=== PATIENT | male | born 1975 | race Two or more races ===

== ENCOUNTER 2025-05-13 16:58 | Observation (INO) | payer MEDICAID, SELFPAY ==
[2025-05-13] VITALS (9 sets, daily range): BP systolic 159–175; BP diastolic 87–118; PULSE 69–81; RESP 18–20; TEMP 37.2; O2SAT 94–98; BMI 34.2
--- NOTE | 2025-05-13 17:22 | EKG_ITS ---
[facility] Test Date: 2025-05-13 Pat Name: KENNY GRANADOS Department: Room: - Gender: Male Coremaker Machine: : 1975 Requested By: Talha Venegas (DEVENDRA) Order Number: [id number] Reading MD: Talha Venegas (EVS MANAGER) Measurements Intervals Melvin Rate: 85 P: 33 NV: 172 QRS: -67 QRSD: 96 T: 27 QT: 373 QTc: 444 Interpretive Statements SINUS RHYTHM INCOMPLETE RIGHT BUNDLE BRANCH BLOCK [90+ ms QRS DURATION, TERMINAL R IN V1/V2, 40+ ms S IN I/aVL/V4/V5/V6] LEFT ANTERIOR FASCICULAR BLOCK [QRS AXIS <= -45, QR IN I, RS IN II] No previous ECG available for comparison /[id number]/S0/[id number].pdf
--- NOTE | 2025-05-13 17:22 | XR_ITS ---
Examination: Abdomen sonogram, Limited Date and time of exam: May 13, 2025 1746 hours INDICATIONS: Right upper abdominal pain and vomiting beginning today Technique: Real-time jimenez scale transabdominal sonographic images of the upper abdomen obtained. Findings: Cholelithiasis Gallbladder wall 0.5 cm with edema Common bile duct 0.5 cm Pancreatic and 2.7 cm Liver 18.9 cm fatty infiltration 10 mm right lobe liver cyst Normal hepatopedal portal venous and Patent IVC IMPRESSION: Acute calculus cholecystitis
--- NOTE | 2025-05-13 17:31 | EDNOTE_ITS ---
ED Abdominal Pain RME/HPI General Chief Complaint: Abdominal Pain Stated complaint: UPPER ABD PAIN WITH VOMITING SINCE LAST NIGHT Time seen by provider: 05/13/25 17:22 Arrival date/time: 05/13/25 16:58 RME / HPI RME / HPI narrative: 49-year-old male patient came in for evaluation regarding right upper quadrant pain. Onset of symptoms since last night as sudden onset of upper abdominal pain, described as sharp pain, associated with multiple episodes of vomiting. Patient told me that he cannot take anything down due to vomiting. Patient denies any fever denies any diarrhea denies any other complaints no medications taken prior to arrival. Related Data Previous Rx's ?Medication ?Instructions ?Recorded hydrocodone 5 mg-acetaminophen 325 1 tab PO Q6H PRN pa in #20 tabs 01/10/18 mg tablet ([place]) Allergies Allergy/AdvReac Type Severity Reaction Status Date / Time No Known Allergies Allergy Verified 05/13/25 17:00 Review of Systems Review of Systems Narrative Review of Systems: Review of system reviewed and within normal limits except mentioned in HPI ED Exam Narrative Physical exam: VITAL SIGNS: Reviewed. GENERAL APPEARANCE: Alert and interactive, follows commands, no acute distress, HEAD AND FACE: Non-traumatic. ENT: PERRL, pink conjunctivitis, eyelid no trauma, Mucous membrane moist. NECK: Supple, nontender, no nuchal rigidity. CHEST: No tenderness, no crepitus, no paradoxical movement, no retractions. LUNGS: Clear, well ventilated, symmetric, no rales, no wheezing, no ronchi, no stridor, good breath sounds bilaterally. HEART: Regular rate, regular rhythm, no murmur, no gallops. ABDOMEN: Soft, positive bowel sounds, nondistended, no guarding, epigastric tenderness, no rebound, no masses, RECTAL: Deferred. GENITAL: Deferred. NEUROLOGICAL: Gross motor function intact sensory function intact, Appropriate for age. MUSCULOSKELETAL: low back nontender, full range of motion. EXTREMITIES: Nontender, full range of motion. SKIN: Color pink, dry, no rash, no lacerations, no abrasions, no contusions. LYMPHATICS: Deferred. Course Quality Measures none Orders Category Date Time Status Patient Condition Routine Admission 05/13/25 21:[address] in Observation Status Routine Admission 05/13/25 21:32 Active Activity as Tolerated Routine Care 05/13/25 21:32 Ordered EKG (ED ONLY) *Do not use* NOW Care 05/13/25 17:24 Completed NPO after Midnight ONCE Care 05/13/25 21:33 Active Obtain Written Consent For: NOW Care 05/13/25 21:32 Active Vital Signs, Non-Routine Q4H Care 05/13/25 21:45 Ordered Consult to General Surgery Stat Cons 05/13/25 20:50 Ordered Diet NPO after Midnight Diet 05/14/25 00:01 Active EKG (ED Only) Stat Exams 05/13/25 17:22 Draft US gall bladder Stat Exams 05/13/25 17:22 Completed CBC AM DRAW Lab 05/14/25 05:00 Ordered CBC Stat Lab 05/13/25 17:36 Completed Comprehensive Metabolic Panel Stat Lab 05/13/25 17:36 Completed Lipase Stat Lab 05/13/25 17:36 Completed Liver Panel Routine Lab 05/13/25 21:34 Ordered Troponin I Stat Lab 05/13/25 17:36 Completed UA, C/S IF [Urinalysis, C/S if Indicated] Stat Lab 05/13/25 18:16 Completed Ketorolac Inj [Toradol Inj] Med 05/13/25 17:30 Discontinued 30 mg IM X1 ONE Ketorolac Inj [Toradol Inj] Med 05/13/25 21:32 Ordered 30 mg IVP Q6HR PRN Ketorolac Inj [Toradol Inj] Med 05/13/25 17:33 Discontinued 30 mg IVP X1 ONE Ondansetron Inj [Zofran Inj] Med 05/13/25 17:33 Discontinued 4 mg IVP X1 ONE Ondansetron Odt [Zofran Odt] Med 05/13/25 17:30 Discontinued 4 mg PO X1 ONE Piper/Tazo 3.375 gm Premix [Zosyn] Med 05/13/25 20:47 Discontinued 3.375 gm in 50 ml IV X1 Ringers Lactated 1000 ml [Lactated Ringers] 1,000 ml Med 05/13/25 17:33 Discontinued IV 999 mls/hr Sodium Chloride 0.9% 1000 ml [Ns] 1,000 ml Med 05/13/25 21:45 Ordered IV 100 mls/hr mg Hyd/Al Hyd/Jeri Susp [Maalox Susp] Med 05/13/25 17:30 Discontinued 30 ml PO X1 ONE Code Status Routine Oth 05/13/25 21:32 Ordered Vital Signs Vital signs: Vital Signs Temperature 99 F 05/13/25 17:10 Pulse Rate 81 05/13/25 17:10 Respiratory Rate 20 05/13/25 17:10 Blood Pressure 166/93 H 05/13/25 17:10 Pulse Oximetry (%) 95 05/13/25 17:10 Oxygen Delivery Method Room Air 05/13/25 17:10 Abdominal Pain MDM [facility] Narrative [facility] Narrative:: 49-year-old male patient came in for evaluation regarding right upper quadrant pain. Onset of symptoms since last night as sudden onset of upper abdominal pain, described as sharp pain, associated with multiple episodes of vomiting. Patient told me that he cannot take anything down due to vomiting. Patient denies any fever denies any diarrhea denies any other complaints no medications taken prior to arrival. Laboratory workup is significant for slight leukocytosis, and slight elevated open total bili 1.5 slightly elevated at liver enzymes also. Ultrasound of the gallbladder showed acute calculus cholecystitis. Case discussed with Dr. Clifford general surgeon on-call, who examined the patient in the emergency room and admitted the patient. Patient data External records reviewed:: None Clinical information provided by:: patient and family Social determinants that could affect healthcare access:: none Patient has the following chronic illnesses:: None How is presenting disease/condition affected by chronic disease/condition?: no chronic disease Evaluation data The following diagnostics were reviewed and interpreted by me:: lab results and radiology exam(s) Lab and/or radiology exams considered but not ordered:: None Interpretation Summary: See results [facility] Medications / Prescriptions Medications or Prescriptions considered but not ordered:: None Medication administrations:: Medication Administration History Discontinued Medications Al Hydrox/Mg Hydrox/Simethicone (Mg Hyd/Al Hyd/Jeri (Maalox Reg) Susp 30 Ml Udc) 30 ml PO X1 ONE Stop: 05/13/25 17:31 Last Admin: 05/13/25 18:38 Dose: 30 ml Documented By: NOEMÍ Lactated Ringer's (Lactated Ringers) 1,000 mls @ 999 mls/hr IV .Q1H1M ONE Stop: 05/13/25 18:33 Last Infusion: 05/13/25 19:59 Dose: Infused Documented By: Admin: 05/13/25 18:35 Dose: 999 mls/hr Documented By: NOEMÍ Piperacillin/Tazobactam/Dextrose (Zosyn) 3.375 gm in 50 mls @ 100 mls/hr IV X1 ONE Stop: 05/13/25 21:16 Ketorolac Tromethamine (Ketorolac Inj 60 Mg/2 Ml Vial) 30 mg IM X1 ONE Stop: 05/13/25 17:31 Last Admin: 05/13/25 18:44 Dose: Not Given Documented By: NOEMÍ Non-Admin Reason: Duplicate Medication on eMAR Ketorolac Tromethamine (Ketorolac Inj 30 Mg/Ml Vial) 30 mg IVP X1 ONE Stop: 05/13/25 17:34 Last Admin: 05/13/25 18:38 Dose: 30 mg Documented By: NOEMÍ Ondansetron HCl (Ondansetron Odt 4 Mg Tabrap) 4 mg PO X1 ONE; Protocol Stop: 05/13/25 17:31 Last Admin: 05/13/25 18:44 Dose: Not Given Documented By: NOEMÍ Non-Admin Reason: Duplicate Medication on eMAR Ondansetron HCl (Ondansetron Inj 2 Mg/Ml Inj 2 Ml) 4 mg IVP X1 ONE; Protocol Stop: 05/13/25 17:34 Last Admin: 05/13/25 18:39 Dose: 4 mg Documented By: NOEMÍ Zofran, Toradol IV Zosyn and IV fluids for hydration Consultations Consultation(s) initiated? (list below): No Diagnosis Differential diagnosis abdominal pain: abdominal pain and diverticulitis Most likely diagnosis given after review of the tests above:: Acute calculus cholecystitis Admission Indicated Admission indicated?: not indicated Admission Request Was there a request for admission?: No Disposition Plan Disposition Plan: Admit Discharge Plan Plan Patient Disposition: Admit Acute Care w/in Hospital Discharge Disposition comment: Stable Prescriptions/Referrals Prescriptions/Med Rec: No Action hydrocodone-acetaminophen [[place]] 5-325 mg tablet 1 tab PO Q6H MDD 1 PRN (Reason: pain) Qty: 20 0RF Referrals: Eda Murphy [Primary Care Provider] - In 1 week Problem List Clinical Impression: Acute calculous cholecystitis Patient/Caregiver Discharge Instructions Print Language: Croatian Stand Alone Forms: [employer] Award Info., Patient Portal Info Letter
[2025-05-13 17:51] LABS: Basophils % (Auto) 0 % (0-2.5); Eosinophils % (Auto) 0 % (0-10); Hematocrit 44.3 % (41.0-53.0); Immature Granulocytes % (Auto) 0 % (0-0); Immature Granulocytes Auto 0.03 Thou/mm3 (0.00-0.00); Lymphocytes % (Auto) 8 % (10-50); Mean Corpuscular HGB Conc 36.1 g/dl (31.0-37.0); Mean Corpuscular Hemoglobin 31.1 pg (25.0-35.0); Mean Corpuscular Volume 86 fL (80-100); Monocytes # (Auto) 0.9 Thou/mm3 (0.0-0.8); Monocytes % (Auto) 7 % (0-12); Neutrophils # (Auto) 10.9 Thou/mm3 (1.8-7.7); Neutrophils % (Auto) 85 % (37-80); Nucleated Red Blood Cell % 0 /100 WBC (0); Platelet Count 290 Thou/mm3 (140-440); RDW Standard Deviation 39.7 fL (35.1-43.9); Red Blood Count 5.15 Miln/mm3 (4.50-5.90); White Blood Count 12.9 Thou/mm3 (3.8-10.6)
[2025-05-13 18:15] LABS: Alanine Aminotransferase 131 U/L (10-49); Albumin, Serum 4.9 gm/dL (3.5-5.0); Albumin/Globulin Ratio 1.8 (1.2-2.2); Alkaline Phosphatase 64 U/L (46-116); Anion Gap 8 (7-16); Aspartate Amino Transferase 54 U/L (0-34); BUN/Creatinine Ratio 9 Ratio (12-20); Bilirubin,Total 1.5 mg/dL (0.3-1.2); Blood Urea Nitrogen 12 mg/dL (9-23); Calcium 9.9 mg/dL (8.3-10.6); Calcium (Corrected) 9.9 mg/dL (8.5-10.1); Chloride 100 mMol/L (98-107); Creatinine (Component) 1.3 mg/dL (0.6-1.3); Estimated Creatinine Clearance 90.4 mL/min (>60); Globulin 2.8 gm/dL (2.3-3.5); Glucose 124 mg/dL (74-106); Lipase 37 U/L (12-53); Osmolality,Calculated 276 (275-295); Potassium 4.7 mMol/L (3.4-5.1); Sodium 138 mMol/L (136-145); Total Protein 7.7 gm/dL (5.7-8.2); Troponin I < 0.020 ng/mL (0.0-0.045); eGFR > 60 See Note
[2025-05-13 18:22] LABS: Collection Type, Urine Clean Catch
[2025-05-13 18:31] LABS: Amorphous Crystals,Urine Present (Absent); Bacteria,Urine Rare; Bilirubin,Urine Negative (Negative); Blood,Urine Trace (Negative); Clarity,Urine Turbid (Clear/Hazy); Color,Urine Yellow (Lt Yel-Yel); Culture Indicated,Urine Not Indicated; Glucose, Urine Negative (Negative); Ketones,Urine Negative (Negative); Leukocyte Esterase,Urine Negative (Negative); Nitrite,Urine Negative (Negative); Protein,Urine 1+ (Neg - Trace); RBC,Urine 5 /hpf (0-3); Specific Gravity,Urine 1.035 (1.001-1.035); Squamous Epithelial Cell,Urine < 1 /hpf (0-5); Urobilinogen,Urine Negative mg/dL (0.0-1.0); WBC,Urine < 1 /hpf (0-5)
[2025-05-13] MEDS: RINGERS LACTATED 1000 ML 1,000 ML 999 ML IV (18:35)
[2025-05-13] MEDS: MG HYD/AL HYD/SIME (Maalox Reg) SUSP 30 ML UDC PO (18:38)
[2025-05-13] MEDS: KETOROLAC INJ 30 MG/ML VIAL IVP ×2 (18:38→22:44)
[2025-05-13] MEDS: ONDANSETRON INJ 2 MG/ML INJ 2 ML 4 MG IVP (18:39)
--- NOTE | 2025-05-13 21:37 | PD.SURHP ---
[facility] Date of Admission 05/13/2025 Chief Complaint Chief Complaint: Patient is admitted with the complaints of acute cholecystitis with cholelithiasis HPI History of present illness revealed that the patient was in his usual health until around 10 PM last night when he developed a severe pain in the epigastric region going down on both sides. The pain gradually increased and at 4 PM he was experiencing 10 out of 10. He also had a vomiting 4 times. He has never experienced such pain in the past. He tried to eat some coffee with the breakfast but he threw up. Patient denies any other major medical illness. His past surgery consisted of some disc in L4-L5 and repair of Achilles tendon due to a sports injury. Patient denies any allergies Past Medical History Surgical History SURGICAL: Positive Joint Replacement (achiles rupture surgery) Social History SMOKING STATUS: Never smoker Meds Home Medications and Allergies Allergies Allergy/AdvReac Type Severity Reaction Status Date / Time No Known Allergies Allergy Verified 05/13/25 17:00 Exam Vital Signs Temp Pulse Resp BP Pulse Ox O2 Del Method 99 F 81 20 166/93 H 95 Room Air 05/13/25 17:10 05/13/25 17:10 05/13/25 17:10 05/13/25 17:10 05/13/25 17:10 05/13/25 17:10 Narrative Exam Physical examination revealed a slightly obese male who is 6 foot 1 inch tall weighing 260 pounds with BMI of 34.3. His vital signs are normal other than slightly elevated blood pressure which is 166/90 Constitutional Constitutional: mild distress Routine Cardiovascular Exam Comments: Sinus rhythm Routine Abdominal Exam Comments: Abdominal examination showed a definite tenderness in the right upper quadrant with a positive Lemus sign Routine Rectal Exam Comments: Deferred Routine Exam Comments: Deferred Routine Extremities Exam Comments: Within normal limits Routine Back/Spine/Pelvis Exam Comments: Surgical scar in the back due to previous surgery Results Results: Laboratory Laboratory Narrative: Patient's laboratory workup showed mild leukocytosis with a WBC about 12,000. Liver enzymes are borderline elevated Results: Imaging Imaging narrative: Ultrasound of the gallbladder showed thickening of the gallbladder wall with stones edema surrounding the gallbladder suggesting acute calculus cholecystitis Assessment & Plan Additional Assessment Additional comments: Impression: Acute calculus cholecystitis Plan Plan: I advised patient to undergo laparoscopic cholecystectomy. The procedure was explained to him in detail including the risk of the procedure and potential complications. Patient also was told about the need for open cholecystectomy in case the laparoscopic approach fails. We will start him on Zosyn and arrange for surgery in the morning Quality Measures Quality Measures none
[2025-05-13] MEDS: SODIUM CHLORIDE 0.9% 1000 ML 1,000 ML 100 ML IV (21:58)
[2025-05-13] MEDS: PIPER/TAZO 3.375 GM PREMIX 3.375 GM/50 ML BAG IV (22:00)
[2025-05-14] VITALS (16 sets, daily range): BP systolic 105–161; BP diastolic 57–107; PULSE 77–100; RESP 13–95; TEMP 36.1–39.1; O2SAT 91–97; BMI 32.8
[2025-05-14] MEDS: MORPHINE SULF INJ 10 MG/ML VIAL 5 MG IVP ×3 (00:05→21:33)
--- NOTE | 2025-05-14 00:40 | PC.NURSE ---
AUDELIA SORIANO DECLINED DUE TO CAPACITY
--- NOTE | 2025-05-14 00:44 | PC.NURSE ---
REPORT GIVEN TO ZENA LEBRON RN
[2025-05-14 06:12] LABS: Alanine Aminotransferase 127 U/L (10-49); Albumin, Serum 4.4 gm/dL (3.5-5.0); Alkaline Phosphatase 64 U/L (46-116); Aspartate Amino Transferase 75 U/L (0-34); Bilirubin,Direct 0.5 mg/dL (0.0-0.3); Bilirubin,Total 1.8 mg/dL (0.3-1.2); Total Protein 6.9 gm/dL (5.7-8.2)
[2025-05-14 06:13] LABS: Basophils % (Auto) 0 % (0-2.5); Eosinophils # (Auto) 0.1 Thou/mm3 (0.0-0.5); Eosinophils % (Auto) 1 % (0-10); Hematocrit 40.3 % (41.0-53.0); Hemoglobin 14.2 g/dL (13.5-16.0); Immature Granulocytes % (Auto) 0 % (0-0); Immature Granulocytes Auto 0.02 Thou/mm3 (0.00-0.00); Lymphocytes # (Auto) 1.1 Thou/mm3 (1.0-4.8); Lymphocytes % (Auto) 12 % (10-50); Mean Corpuscular HGB Conc 35.2 g/dl (31.0-37.0); Mean Corpuscular Hemoglobin 30.7 pg (25.0-35.0); Mean Corpuscular Volume 87 fL (80-100); Monocytes % (Auto) 10 % (0-12); Neutrophils # (Auto) 7.6 Thou/mm3 (1.8-7.7); Neutrophils % (Auto) 77 % (37-80); Nucleated Red Blood Cell % 0 /100 WBC (0); Platelet Count 248 Thou/mm3 (140-440); Red Blood Count 4.62 Miln/mm3 (4.50-5.90); White Blood Count 9.9 Thou/mm3 (3.8-10.6)
--- NOTE | 2025-05-14 09:14 | SUR.PHASEI ---
0914 Patient arrived to recovery resting comfortably in [facility], on oxygen 10L via oxy mask with an oral/nasal airway in place, breathing unlabored, vital signs stable, dressing intact to abdomen; x3 dissolvable sutures, gauze, medipore tape, and x1 dissolvable sutures, gauze, tegaderm, no bleeding noted, report received from Dr. Mendez and Geronimo ANDERSON
--- NOTE | 2025-05-14 09:35 | PD.SUROPNT ---
Date of Procedure 05/14/25 Pre Op Diagnosis Acute cholecystitis with cholelithiasis Post Op Diagnosis Same with the large stone stuck at the neck of the gallbladder Procedure Laparoscopic cholecystectomy Findings Patient is found to have very inflamed and distended gallbladder with a stone stuck at the neck causing complete obstruction and inflammation Procedure Description After endotracheal anesthesia was given the patient was placed in supine position and the abdomen was prepped with chloroprep solution and draped in a sterile manner. After time out was performed I injected a few cc of of half percent Marcaine with epinephrine below the umbilicus and I made an incision for about 3 cm in length. The fascia was cleaned and Veress needle was inserted to create a pneumoperitoneum up to 15 mmHg. Then introduced a 12 mm trocar and a 10 mm camera through the fascia and I inspected the intra-abdominal organs as well as the gallbladder and the liver. Another 5 mm trocar was inserted in the epigastric region under direct vision after injecting some local anesthesia. At this time the patient was kept in reverse Trendelenburg position with the left lateral tilt. The gallbladder was found to be tense due to bile and could not be grasped. Therefore I decompressed it about at least 50 cc of foul-smelling bile which was then cultured. The third 5 mm trocar was inserted over the mid axillary line under direct vision and a Alejandro and Joseph grasper was used to hold the fundus of the gallbladder. The retraction was carried out by the after school program assistant moving the fundus of the gallbladder towards the right shoulder of the patient to create enough traction. I placed a another 5 mm trocar in the midaxillary line just lateral to the rectus muscle under direct vision. I used a fenestrated grasper to retract the neck of the gallbladder laterally towards the patient's right hip. The Calot's triangle was exposed and I achieved the critical view of safety as follows: I dissected out the fatty tissue from the hepatocystic triangle and cleared this area. I also dissected inferior and posterior to the gallbladder to identify the cystic duct and the gallbladder wall. Then superiorly I dissected along the cystic plate up to lower one third third of the gallbladder to lift the gallbladder from the liver. At this time I confirmed that only 2 structures entering the gallbladder were cystic artery and the cystic duct. The common duct was seen distally but no dissection was carried out around the duct. I did not see any need for operative cholangiogram in this patient. The patient had mild elevation of the transaminases which I attributed to the ongoing inflammation. The cystic duct was clipped doubly and then divided and cystic artery was similarly dealt with. Then the gallbladder was removed from the liver bed using Harmonic neo to control the small blood vessels as the dissection proceeded. Then the gallbladder was from the liver bed completely and delivered through the umbilical port using an Endopouch. The liver bed was coagulated with cautery to obtain satisfactory hemostasis. The trocars were pulled out from the abdominal cavity and the fascia at the umbilical incision was closed with interrupted 0 Ethibond. Subcutaneous tissues was closed with 3-0 chromic and injected a few cc of half percent Marcaine with epinephrine and the skin was closed with interrupted 4-0 nylon stitches at all the trocar sites. Dressing was applied with 2 x 2 and Tegaderm. Patient tolerated the procedure well and returned to recovery room in stable condition. Anesthesia GETA Pathology / specimen Other (Gallbladder and the stones) IVF Infused 1,000 Estimated Blood Loss 50 Surgeon Gilda Urias MD Surgical Staff Operation Date: 05/14/25 06:30 Case Staff Anesthesiologist: Jefferson Mendez RNindustrial commercial groundskeeper: Zeina Naqvi RNindustrial commercial groundskeeper: Pete Telles
--- NOTE | 2025-05-14 09:47 | SUR.PHASEI ---
0947 Spoke to patients via telephone, updated on patient status, all questions answered
--- NOTE | 2025-05-14 10:06 | SUR.PHASEI ---
1001 Report given to Karen ANDERSON, patient meets discharge criteria from recovery, awake and talking with staff eating ice chips; tolerating well, on oxygen 3L via nasal cannula, breathing unlabored, vital signs stable, dressing intact; no bleeding noted, denies pain and and nausea. 1006 Patient transported via gurney to room 358 without incident, patient able to ambulate from gurney to bed with stand-by assist, patient resting comfortably in bed with oxygen 5L via oxy mask due to patient requestiong to go to sleep and having sleep apnea, Karen ANDERSON aware patient oxygen in use and setting, patient has call light in reach
[2025-05-14] MEDS: SODIUM CHLORIDE 0.9% 1000 ML 1,000 ML 100 ML IV ×2 (10:37→21:23)
--- NOTE | 2025-05-14 11:50 | PC.SS ---
Lenin Mcgill is a 49-year-old male admitted to [facility] for Acute Tanesha. SS conducted bedside contact with the patient to complete initial assessment and to discuss discharge planning. Role and reason explained. Patient confirmed demographic information. Patient identifies his Karina Beasley [phone] as his surrogate decision maker. Pt states he is able to complete all ADL?s independent. Pt does not possesses any DME. Pts PCP is Eda Murphy. Pharmacy of choice is [facility] on [address]. Discharge options discussed and the pt wishes to return home.? Pt fam will provide transport at the time of DC. No further intervention required at this time, social media marketing analyst would be available to address any further concerns. DC Plan: Home Contact: Karina Beasley [phone] Address: Confirmed on face sheet PCP: Eda Murphy
--- NOTE | 2025-05-14 12:45 | PC.RT ---
Incentive spirometer instruction completed by nursing.
[2025-05-14] MEDS: PIPER/TAZO 3.375 GM PREMIX 3.375 GM/50 ML BAG IV ×2 (15:27→21:23)
[2025-05-14] MEDS: KETOROLAC INJ 30 MG/ML VIAL IVP (18:21)
--- NOTE | 2025-05-14 18:36 | PC.NURSE ---
Called Dr. Urias to notify him of pt. temperature, no answer x2, left a voicemail asking him to call back. Cooling measures initiated and IV Toradol given for pain.
[2025-05-15] VITALS: BP 110/70; PULSE 83; RESP 20; TEMP 36.6; O2SAT 96
[2025-05-15 04:00] VITALS: BP 142/83; PULSE 87; RESP 18; TEMP 36.6; O2SAT 95
[2025-05-15] MEDS: PIPER/TAZO 3.375 GM PREMIX 3.375 GM/50 ML BAG IV (05:17)
[2025-05-15 05:48] LABS: Basophils % (Auto) 0 % (0-2.5); Eosinophils % (Auto) 0 % (0-10); Hematocrit 37.5 % (41.0-53.0); Hemoglobin 13.2 g/dL (13.5-16.0); Immature Granulocytes % (Auto) 1 % (0-0); Immature Granulocytes Auto 0.06 Thou/mm3 (0.00-0.00); Lymphocytes # (Auto) 0.8 Thou/mm3 (1.0-4.8); Lymphocytes % (Auto) 6 % (10-50); Mean Corpuscular HGB Conc 35.2 g/dl (31.0-37.0); Mean Corpuscular Hemoglobin 31.1 pg (25.0-35.0); Mean Corpuscular Volume 88 fL (80-100); Monocytes # (Auto) 0.8 Thou/mm3 (0.0-0.8); Monocytes % (Auto) 7 % (0-12); Neutrophils # (Auto) 10.6 Thou/mm3 (1.8-7.7); Neutrophils % (Auto) 86 % (37-80); Nucleated Red Blood Cell % 0 /100 WBC (0); Platelet Count 200 Thou/mm3 (140-440); RDW Standard Deviation 41.1 fL (35.1-43.9); Red Blood Count 4.25 Miln/mm3 (4.50-5.90); White Blood Count 12.3 Thou/mm3 (3.8-10.6)
[2025-05-15 06:32] LABS: Alanine Aminotransferase 353 U/L (10-49); Albumin, Serum 4.1 gm/dL (3.5-5.0); Alkaline Phosphatase 66 U/L (46-116); Anion Gap 9 (7-16); Aspartate Amino Transferase 238 U/L (0-34); Bilirubin,Direct 0.6 mg/dL (0.0-0.3); Bilirubin,Total 1.6 mg/dL (0.3-1.2); Carbon Dioxide 27.9 mMol/L (20.0-31.0); Chloride 102 mMol/L (98-107); Potassium 4.5 mMol/L (3.4-5.1); Sodium 139 mMol/L (136-145); Total Protein 6.6 gm/dL (5.7-8.2)
[2025-05-15] MEDS: SODIUM CHLORIDE 0.9% 1000 ML 1,000 ML 100 ML IV (07:36)
[2025-05-15 08:00] VITALS: BP 153/91; PULSE 80; RESP 18; TEMP 36.1; O2SAT 98
--- NOTE | 2025-05-15 08:21 | ESPR_ITS ---
Documentation for date of: 05/15/25 Subjective Subjective Brief History: History of present illness revealed that the patient was in his usual health until around 10 PM last night when he developed a severe pain in the epigastric region going down on both sides. The pain gradually increased and at 4 PM he was experiencing 10 out of 10. He also had a vomiting 4 times. He has never experienced such pain in the past. He tried to eat some coffee with the Move In History but he threw up. Patient denies any other major medical illness. His past surgery consisted of some disc in L4-L5 and repair of Achilles tendon due to a sports injury. Patient denies any allergies Narrative: The patient is doing better after surgery. He does not have significant pain now and is passing flatus. He tolerated liquid diet Exam Vital Signs Temp Pulse Resp BP Pulse Ox O2 Del Method O2 Flow Rate 97.8 F 87 18 142/83 H 95 Room Air 3 05/15/25 04:00 05/15/25 04:00 05/15/25 04:00 05/15/25 04:00 05/15/25 04:00 05/15/25 04:00 05/14/25 09:59 Vital signs are normal Routine Abdominal Exam Comments: Abdominal examination shows good bowel sounds Results Results: Laboratory Laboratory Narrative: Laboratory workup shows elevation of the transaminases probably due to surgery. Other possibilities a small gallstone which might have gone to the common bile duct Assessment & Plan Assessment Additional comments: Impression: Stable recovery following laparoscopic cholecystectomy for acute cholecystitis Plan Plan: We shall discharge the patient and monitor him as an outpatient. Procedures Procedures Laparoscopic cholecystectomy
--- NOTE | 2025-05-15 08:31 | PC.NURSE ---
Dr. Clifford at bedside to assess pt, made aware of pts BP 142/99 and labs.
== END 2025-05-15 09:52 | disposition home or self-care (01) ==
LOC: SERX 20:51 → SERHOLD 22:05 → S3NX 05-14 05:27 → SERHOLD 05-14 07:45
PROVIDERS: Nurse Practitioner Primary Care; Admitting Provider Surgery; Emergency Provider Emergency Medicine; PCP Physician Assistant; Visit Provider Surgery
PROC: 0FT44ZZ Resection of Gallbladder, Percutaneous Endoscopic Approach (ICD-10-PCS; CPT 47562; principal; 2025-05-14 06:30)
DX: K80.12 Calculus of gallbladder with acute and chronic cholecystitis without obstruction (principal); K82.A1 Gangrene of gallbladder in cholecystitis; Z01.810 Encounter for preprocedural cardiovascular examination
CPT/HCPCS: 47562; 36415; 76705; 80051; 80053; 80076; 81001; 83690; 84484; 85025; 87070; 87075; 87077; 87186; 87205; 96361; 96365; 96366; 96375; 96376; 99285; A4217; A4649; G0378; J0131; J1100; J1885; J2270; J2371; J2405; J2543; J2704; J2710; J3010; J3490; J7030; J7120; A9270; J1596; J1805

== ENCOUNTER 2025-05-18 13:03 | Inpatient (IN) | payer MEDICAID, SELFPAY ==
[2025-05-18 13:04] VITALS: BMI 35.6
[2025-05-18 13:29] VITALS: BP 156/99; PULSE 97; RESP 18; TEMP 36.9; O2SAT 96
[2025-05-18 13:30] VITALS: BMI 35.4
--- NOTE | 2025-05-18 13:33 | XR_ITS ---
Examination: CT abdomen with intravenous contrast CT pelvis with intravenous contrast 2-D coronal reconstructions 2-D sagittal reconstructions Date and time of exam:May 18, 2025 1506 hours INDICATIONS: Status post cholecystectomy last week followed by a abdominal pain and fever the last 3 days. CTDI: vol (mGy) 13 DLP: (mGycm) 899 Technique: Multiple axial sections of the abdomen and pelvis have been obtained. 64 slice high-resolution scanner used. 3 mm axial sections have been obtained, post intravenous injection 60 cc [id number] 2-D sagittal, coronal reconstructions obtained. Low dose protocols were performed. One or more of the following dose reduction techniques were used; automated exposure control, adjustment of the mA and/or KV according to patient size, use of iterative reconstruction technique. Findings: Pneumonia right middle lobe and right base Fatty infiltration throughout the liver, no focal liver lesions Abscess in the gallbladder fossa fluid and air density, measuring at least 9.7 x 6.0 x 5.0 cm No hydronephrosis Aorta normal size Normal appendix No bowel obstruction Colonic diverticulosis Contracted urinary bladder IMPRESSION: Pneumonia right middle lobe and right base Abscess in the gallbladder fossa 9.7 x 6.0 x 5.0 cm, amenable to CT-guided percutaneous catheter drainage
--- NOTE | 2025-05-18 13:33 | XR_ITS ---
Examination: PA lateral chest 2 views TECHNIQUE: Upright PA lateral chest 2 views Date and time: May 18, 2025 1352 hours Comparison July 12, 2024 INDICATIONS: Coughing chest pain beginning 3 days ago. FINDINGS: Right middle lobe and left base subsegmental atelectasis Normal heart size No pneumonia or pulmonary edema IMPRESSION: No pneumonia or pulmonary edema
--- NOTE | 2025-05-18 13:34 | PD.EDRME ---
Rapid Medical Screening Exam RME Arrival date/time: 05/18/25 13:03 49-year-old male status post cholecystectomy presents to the Emergency Department today for complaints of fever Chief Complaint: Fever Vital signs: Vital Signs Temperature 98.4 F 05/18/25 13:29 Pulse Rate 97 05/18/25 13:29 Respiratory Rate 18 05/18/25 13:29 Blood Pressure 156/99 H 05/18/25 13:29 Pulse Oximetry (%) 96 05/18/25 13:29 Oxygen Delivery Method Room Air 05/18/25 13:29
[2025-05-18 14:09] LABS: Lactate (Lactic Acid) 1.8 mMol/L (0.4-2.0)
[2025-05-18 14:09] LABS: Collection Type, Urine Clean Catch
[2025-05-18 14:12] LABS: Basophils % (Auto) 0 % (0-2.5); Eosinophils % (Auto) 0 % (0-10); Hematocrit 41.7 % (41.0-53.0); Immature Granulocytes % (Auto) 1 % (0-0); Immature Granulocytes Auto 0.14 Thou/mm3 (0.00-0.00); Lymphocytes # (Auto) 1.2 Thou/mm3 (1.0-4.8); Lymphocytes % (Auto) 8 % (10-50); Mean Corpuscular Hemoglobin 30.5 pg (25.0-35.0); Mean Corpuscular Volume 85 fL (80-100); Monocytes # (Auto) 1.3 Thou/mm3 (0.0-0.8); Monocytes % (Auto) 10 % (0-12); Neutrophils % (Auto) 80 % (37-80); Nucleated Red Blood Cell % 0 /100 WBC (0); Platelet Count 349 Thou/mm3 (140-440); RDW Standard Deviation 38.7 fL (35.1-43.9); Red Blood Count 4.92 Miln/mm3 (4.50-5.90); White Blood Count 13.7 Thou/mm3 (3.8-10.6)
[2025-05-18 14:43] LABS: Bilirubin,Urine Negative (Negative); Blood,Urine Trace (Negative); Clarity,Urine Turbid (Clear/Hazy); Color,Urine Yellow (Lt Yel-Yel); Glucose, Urine Negative (Negative); Ketones,Urine Negative (Negative); Leukocyte Esterase,Urine Negative (Negative); Nitrite,Urine Negative (Negative); Protein,Urine 1+ (Neg - Trace); RBC,Urine 5 /hpf (0-3); Squamous Epithelial Cell,Urine 1 /hpf (0-5); WBC,Urine 1 /hpf (0-5)
[2025-05-18 14:47] LABS: Alanine Aminotransferase 321 U/L (10-49); Albumin, Serum 4.7 gm/dL (3.5-5.0); Albumin/Globulin Ratio 1.5 (1.2-2.2); Alkaline Phosphatase 135 U/L (46-116); Anion Gap 9 (7-16); Aspartate Amino Transferase 105 U/L (0-34); BUN/Creatinine Ratio 9 Ratio (12-20); Bilirubin,Total 1.1 mg/dL (0.3-1.2); Blood Urea Nitrogen 11 mg/dL (9-23); Calcium 9.6 mg/dL (8.3-10.6); Calcium (Corrected) 9.6 mg/dL (8.5-10.1); Carbon Dioxide 29.9 mMol/L (20.0-31.0); Chloride 98 mMol/L (98-107); Creatinine (Component) 1.2 mg/dL (0.6-1.3); Estimated Creatinine Clearance 99.6 mL/min (>60); Globulin 3.1 gm/dL (2.3-3.5); Glucose 103 mg/dL (74-106); Lipase 37 U/L (12-53); Osmolality,Calculated 273 (275-295); Potassium 4.2 mMol/L (3.4-5.1); Procalcitonin 0.79 ng/ml (0.0-0.49); Sodium 137 mMol/L (136-145); Total Protein 7.8 gm/dL (5.7-8.2); eGFR > 60 See Note
--- NOTE | 2025-05-18 15:54 | PD.EDFEVER ---
ED Fever RME/HPI General Chief Complaint: Fever Stated Complaint: ZOLTAN LAST WK, INTERMIT. FEVERS, SENT BY DR. CLIFFORD Time Seen by Provider: 05/18/25 15:45 Arrival date/time: 05/18/25 13:03 Limitations: no limitations RME / HPI RME / HPI Narrative: 49-year-old male who is status postcholecystectomy. He had surgery right Dr Urias last week. Over the weekend he states he has had some increased abdominal pain, nausea, and chills. He states has had fevers with a Tmax of 100 [address] He saw Dr. Bueno today in the office and was sent here for further evaluation. Related Data Home Medications ?Medication ?Instructions ?Recorded ?Confirmed famotidine 20 mg tablet 20 mg PO BID PRN acid reflux 05/14/25 05/14/25 Previous Rx's ?Medication ?Instructions ?Recorded hydrocodone 5 mg-acetaminophen 325 1 tab PO Q6H PRN pain #20 tabs 02/15/18 mg tablet ([place]) hydrocodone 5 mg-acetaminophen 325 1 tab PO Q6H #20 tabs /20/25 mg tablet Allergies Allergy/AdvReac Type Severity Reaction Status Date / Time No Known Allergies Allergy Verified 05/18/25 13:06 Review of Systems Review of Systems Systems Reviewed: All systems reviewed, normal except as documented Physical Exam General Limitations: no limitations General appearance: alert and in no apparent distress Head Head exam: atraumatic Eye Eye exam: Present normal appearance, PERRL and EOMI ENT ENT exam: Present normal exam, normal oropharynx and mucous membranes moist Neck Neck exam: Present normal inspection, full ROM and trachea midline Chest Chest inspection: Present normal inspection and symmetric chest wall rise Respiratory Respiratory exam: Present normal lung sounds bilaterally Cardiovascular Cardiovascular exam: Present regular rate, normal rhythm and normal heart sounds Abdominal Exam Abdominal exam: Present soft, normal bowel sounds and other (He has mild tenderness diffusely. Postsurgical wounds of exhibit no evidence of dehiscence.) Extremities Exam Extremities exam: Present normal inspection and full ROM Back Exam Back exam: Present normal inspection and full ROM Neurological Exam Neurological exam: Present alert, oriented X3 and CN II-XII intact Psychiatric Psychiatric exam: Present normal affect and normal mood Skin Skin exam: Present warm, dry, intact and normal color ED Exam General Limitations: Present no limitations General appearance: Present alert and in no apparent distress Head Head exam: Present atraumatic Eye Eye exam: Present normal appearance, PERRL and EOMI ENT ENT exam: Present normal exam, normal oropharynx and mucous membranes moist Neck Neck exam: Present normal inspection, full ROM and trachea midline Chest Chest inspection: Present normal inspection and symmetric chest wall rise Respiratory Respiratory exam: Present normal lung sounds bilaterally Cardiovascular Cardiovascular exam: Present regular rate, normal rhythm and normal heart sounds Abdominal Exam Abdominal exam: Present soft, normal bowel sounds and other (He has mild tenderness diffusely. Postsurgical wounds of exhibit no evidence of dehiscence.) Extremities Exam Extremities exam: Present normal inspection and full ROM Back Exam Back exam: Present normal inspection and full ROM Neurological Exam Neurological exam: Present alert, oriented X3 and CN II-XII intact Psychiatric Psychiatric exam: Present normal affect and normal mood Skin Skin exam: Present warm, dry, intact and normal color Course Quality Measures none Orders Category Date Time Status COVID-19 Screening Questionnaire NOW Care 05/18/25 16:[address] Screening NOW Care 05/18/25 13:34 Active Decision to Admit X1 Care 05/18/25 16:04 Active Insert IV NOW Care 05/18/25 13:[address] abdomen pelvis w con Stat Exams 05/18/25 13:33 Completed XR chest 2V Stat Exams 05/18/25 13:33 Completed Blood Culture (Lab) Stat Lab 05/18/25 13:50 Received CBC Stat Lab 05/18/25 13:50 Completed Comprehensive Metabolic Panel Stat Lab 05/18/25 13:50 Completed Lactate (Lactic Acid) Stat Lab 05/18/25 13:50 Completed Lipase Stat Lab 05/18/25 13:50 Completed Procalcitonin Stat Lab 05/18/25 13:50 Completed Urinalysis Stat Lab 05/18/25 13:35 Completed Urine Culture Stat Lab 05/18/25 13:35 Received Piper/Tazo Inj [Zosyn Inj] 4.5 gm Med 05/18/25 15:51 Active Sodium Chloride 0.9% (Pop) [NS 0.9% mini bag] 100 ml IV X1 Vital Signs Vital signs: Vital Signs Temperature 98.4 F 05/18/25 13:29 Pulse Rate 97 05/18/25 13:29 Respiratory Rate 18 05/18/25 13:29 Blood Pressure 156/99 H 05/18/25 13:29 Pulse Oximetry (%) 96 05/18/25 13:29 Oxygen Delivery Method Room Air 05/18/25 13:29 Fever MDM Narrative MDM Narrative:: 49-year-old male who is status postcholecystectomy. He had surgery right Dr Urias last week. Over the weekend he states he has had some increased abdominal pain, nausea, and chills. He states has had fevers with a Tmax of 100 [address] He saw Dr. Bueno today in the office and was sent here for further evaluation. Patient has a mildly elevated leukocytosis here in addition to liver enzymes. CT is concerning for possible postsurgical abscess versus hematoma. Dr. Clifford was informed in the workup results and will follow the patient here. Medicine was called for admission. However Dr. Clifford later arrived to the ER and stated he will perform the admission himself. Patient data External records reviewed:: None Clinical information provided by:: patient Social determinants that could affect healthcare access:: none Patient has the following chronic illnesses:: n/a How is presenting disease/condition affected by chronic disease/condition?: no chronic disease Evaluation data The following diagnostics were reviewed and interpreted by me:: lab results (Leukocytosis at 13.7 thousand. Liver enzymes elevated. Bilirubin and it was within normal limits.) and radiology exam(s) (Postsurgical changes versus seroma versus postsurgical abscess) Lab and/or radiology exams considered but not ordered:: n/a Interpretation Summary: n/a Medications / Prescriptions Medications or Prescriptions considered but not ordered:: Zosyn Medication administrations:: Medication Administration History Discontinued Medications Piperacillin Sod/Tazobactam (Sod 4.5 gm/ Sodium Chloride) 100 mls @ 200 mls/hr IV X1 ONE Stop: 05/18/25 16:20 Zosyn was discontinued per surgery. Surgery will write for antibiotic orders. Consultations Consultation(s) initiated? (list below): Yes Diagnosis Fever Differential Diagnosis: cellulitis and community acquired pneumonia Most likely diagnosis given after review of the tests above:: Postsurgical infection Admission Indicated Admission indicated?: not indicated Admission Request Was there a request for admission?: No Disposition Plan Disposition Plan: Admit Discharge Plan Plan Patient Disposition: Admit Acute Care w/in Hospital Prescriptions/Referrals Prescriptions/Med Rec: No Action hydrocodone-acetaminophen [[place]] 5-325 mg tablet 1 tab PO Q6H MDD 1 PRN (Reason: pain) Qty: 20 0RF famotidine 20 mg tablet 20 mg PO BID PRN (Reason: acid reflux) Patient Comments: TAKE 1 TABLET BY MOUTH TWICE DAILY hydrocodone-acetaminophen 5-325 mg tablet 1 tab PO Q6H MDD 4 Qty: 20 0RF Referrals: Eda Murphy [Primary Care Provider] - In 1 week Problem List Clinical Impression: Fever postop Patient/Caregiver Discharge Instructions Print Language: Russian Stand Alone Forms: [employer] Award Info., Patient Portal Info Letter
--- NOTE | 2025-05-18 16:17 | PC.NURSE ---
PT IN TODAY FOR FEVER S/P ZOLTAN LAST WEEK. PT HAS HAD FEVER FOR THE LAST 3 DAYS. PT WENT IN FOR LAB WORK AND WENT IN TO DR. CAMPBELL'S OFFICE WHO SENT HIM OVER THE ER FOR EVALUATION AND REPEAT LABS AND SCANS. PT IS A/OX4 AND ANSWERING APPROPRIATELY.
[2025-05-18 16:18] VITALS: BP 159/103; PULSE 87; RESP 16; TEMP 37.1; O2SAT 94
--- NOTE | 2025-05-18 16:18 | XR_ITS ---
Examination: [place], hepatobiliary radioisotope scan Date and time of exam: May 19, 2025 1115 hours INDICATIONS: Postop cholecystectomy abdominal pain, fluid collection in the gallbladder fossa on CT abdomen pelvis yesterday Technique: 5.9 mCi of 99M Hepatolite administered. Serial imaging then obtained from immediate through 60 minutes. Findings: Radioisotope activity within the liver is reasonably homogenous. Common bile duct small bowel activity noted Impression: No findings of biliary leak
[2025-05-18] MEDS: metroNIDAZOLE/NS 500 MG IVPB 500 MG/100 ML BAG 200 MG IV ×2 (16:29→21:52)
[2025-05-18] MEDS: SODIUM CHLORIDE 0.9% 1000 ML 1,000 ML 100 ML IV (16:29)
[2025-05-18 17:07] LABS: COVID-19 Antigen (In-House) Negative (Negative)
[2025-05-18] MEDS: ceFAZolin/D5W 2 GM IV 2 GM/100 ML BAG IV ×2 (17:18→22:00)
[2025-05-18 17:58] VITALS: BP 157/94; PULSE 91; RESP 19; TEMP 37.1; O2SAT 95
--- NOTE | 2025-05-18 18:05 | PC.NURSE ---
CALLED REPORT TO SARY ANDERSON ON MED SURG. ALL QUESTIONS ANSWERED.
[2025-05-18 18:26] VITALS: BMI 35.4
[2025-05-18 18:32] VITALS: BP 153/103; PULSE 94; RESP 18; TEMP 36.7; O2SAT 95
--- NOTE | 2025-05-18 19:21 | ESCONSULT_ITS ---
HPI Data of Consult Requesting Physician: Gilda Urias MD Admitting Provider: Gilda Urias MD Attending Provider: Gilda Urias MD Primary Care Provider: Eda Murphy Consult Narrative History of present illness: Mr. Mcgill is a 49 year old male with no significant past medical originally presented to [facility] Emergency Department on 05/13/2025 with chief complaint of abdominal pain. He underwent gallbladder ultrasound that was significant for Acute calculus cholecystitis. Patient was admitted by general surgery and under went laparoscopic cholecystectomy on 05/14/2025. Patient was successfully discharged at that time and presented back to [facility] today 05/18/2025 with chief complaint of abdominal pain and fever. Patient underwent CT of abdomen and pelvis which is significant for Pneumonia right middle lobe and right base Abscess in the gallbladder fossa 9.7 x 6.0 x 5.0 cm and amenable to CT-guided percutaneous catheter drainage. Patient also found to have leukocytosis with left shift. Patient started on IV antibiotics and admitted under general surgery. Hospitalist team consulted for elevated blood pressure. Patient has no cardiac complaints at this time including chest pain or shortness of breath. Patient denies a previous cardiac history and denies a history of primary hypertension. Primary hospital team is consulted for management of hypertension cc:: cc: Gilda Urias MD Exam Vital Signs Temp Pulse Resp BP Pulse Ox O2 Del Method 98.1 F 94 18 153/103 H 95 Room Air 05/18/25 18:32 05/18/25 18:32 05/18/25 18:32 05/18/25 18:32 05/18/25 18:32 05/18/25 18:32 Results Labs 05/19/25 04:25 05/18/25 13:50 Labs: Short CBC 05/18/25 Range/Units 13:50 WBC 13.7 H (3.8-10.6) Thou/mm3 Hgb 15.0 (13.5-16.0) g/dL Hct 41.7 (41.0-53.0) % Plt Count 349 D (140-440) Thou/mm3 BMP 05/18/25 13:50 Sodium 137 Potassium 4.2 Chloride 98 Carbon Dioxide 29.9 BUN 11 Creatinine 1.2 Glucose 103 Calcium 9.6 Liver Function 05/18/25 Range/Units 13:50 Total Bilirubin 1.1 (0.3-1.2) mg/dL AST 105 H (0-34) U/L ALT 321 H (10-49) U/L Alkaline Phosphatase 135 H (46-116) U/L Albumin 4.7 (3.5-5.0) gm/dL Urine 05/18/25 Range/Units 13:35 Urine Color Yellow (Lt Yel-Yel) Urine Clarity Turbid A (Clear/Hazy) Urine pH 6.0 (5.0-7.0) Ur Specific [place] 1.030 (1.001-1.035) Urine Protein 1+ A (Neg - Trace) Urine Glucose (UA) Negative (Negative) Quality Measures Quality Measures none Medications Home Medications and Allergies Home Medications ?Medication ?Instructions ?Recorded ?Confirmed ?Type famotidine 20 mg tablet 20 mg PO BID PRN acid reflux 05/14/25 05/18/25 History Allergies Allergy/AdvReac Type Severity Reaction Status Date / Time No Known Allergies Allergy Verified 05/18/25 13:06 Visit Medications Acetaminophen (Acetaminophen 325 Mg Tablet) 650 mg PO Q6HR PRN PRN Reason: Fever Stop: 06/17/25 16:12 Sodium Chloride (Ns) 1,000 mls @ 100 mls/hr IV .Q10H CATA Stop: 06/17/25 16:14 Last Admin: 05/18/25 16:29 Dose: 100 mls/hr Cefazolin Sodium (Ancef 2gm Ivpb) 2 gm in 100 mls @ 200 mls/hr IV Q8HR CATA Stop: 05/25/25 16:14 Last Admin: 05/18/25 17:18 Dose: 200 mls/hr Metronidazole (Flagyl 500 Mg Iv) 500 mg in 100 mls @ 200 mls/hr IV Q8HR CATA Stop: 05/25/25 16:14 Last Infusion: 05/18/25 17:05 Dose: Infused Morphine Sulfate (Morphine Sulf Inj 10 Mg/Ml Vial) 4 mg IVP Q4HRRT PRN PRN Reason: PAIN SCALE 4-6 (Moderate Stop: 05/23/25 18:59 Discontinued Medications Piperacillin Sod/Tazobactam (Sod 4.5 gm/ Sodium Chloride) 100 mls @ 200 mls/hr IV X1 ONE Stop: 05/18/25 16:20 Last Admin: 05/18/25 17:21 Dose: Not Given Assessment & Plan Plan Mr. Mcgill is a 49 year old male with medical history of recent cholecystectomy who presented to [facility] on 05/18/2025 with chief complaints of abdominal pain and fever. Patient was found to have gallbladder fossa abscess and admitted via general surgery. Hospitalist consulted for elevated blood pressure. #Elevated Blood Pressure - Per patient no prior history of hypertension - Ddx: Pain vs primary hypertension vs medication side effect Plan: -Continue to monitor vital signs q8 hours. Most likely BP elevated 2/2 to pain vs primary hypertension. -Continue pain management and monitor for improvement. -Patient will need to follow-up with PCP to receive formal diagnosis outpatient. -For now start Amlodipine 5mg PO qd. -We will continue to adjust antihypertensive regimen as needed. #Abdominal Pain #Gallbaldder Fossa Abscess #Recent Cholecystectomy - S/P cholecystectomy 05/14/2025 - CT ABD/PLV: Abscess in the gallbladder fossa 9.7 x 6.0 x 5.0 cm, amenable to CT-guided percutaneous catheter drainage Plan: -Agree with current antibiotic regimen. -Continue IV metronidazole & Ancef. -Follow-up blood culture results when available. -Continue to monitor leukocytosis with daily complete blood count. -Pain management as needed. Thank you for allowing us to participate in this patients care. We will continue to follow the patient with you. Assessment and plan discussed with my attending physician Dr. Mohan Coello (PGY-1)- Internal medicine resident Attending Provider Attestation/Addendum I reviewed above note and agree with findings and plans. I have also personally examined the patient with medicine team and went over assessment and plan with medical team including manager of internal audit and resident physician.
[2025-05-18 21:51] VITALS: BP 153/103; PULSE 94
[2025-05-18] MEDS: amLODIPine BESYLATE 5 MG TABLET PO (21:51)
[2025-05-19] VITALS (10 sets, daily range): BP systolic 144–165; BP diastolic 80–110; PULSE 84–100; RESP 16–20; TEMP 36.1–37; O2SAT 94–99
[2025-05-19] MEDS: SODIUM CHLORIDE 0.9% 1000 ML 1,000 ML 100 ML IV ×2 (04:58→20:56)
[2025-05-19] MEDS: metroNIDAZOLE/NS 500 MG IVPB 500 MG/100 ML BAG 200 MG IV ×3 (05:00→21:42)
[2025-05-19] MEDS: ceFAZolin/D5W 2 GM IV 2 GM/100 ML BAG IV ×3 (05:00→21:00)
[2025-05-19 05:26] LABS: Basophils # (Auto) 0.1 Thou/mm3 (0.0-0.2); Basophils % (Auto) 0 % (0-2.5); Eosinophils % (Auto) 0 % (0-10); Hematocrit 41.3 % (41.0-53.0); Hemoglobin 14.5 g/dL (13.5-16.0); Immature Granulocytes % (Auto) 1 % (0-0); Immature Granulocytes Auto 0.15 Thou/mm3 (0.00-0.00); Lymphocytes # (Auto) 1.2 Thou/mm3 (1.0-4.8); Lymphocytes % (Auto) 8 % (10-50); Mean Corpuscular HGB Conc 35.1 g/dl (31.0-37.0); Mean Corpuscular Hemoglobin 30.8 pg (25.0-35.0); Mean Corpuscular Volume 88 fL (80-100); Monocytes # (Auto) 1.4 Thou/mm3 (0.0-0.8); Monocytes % (Auto) 9 % (0-12); Neutrophils % (Auto) 81 % (37-80); Nucleated Red Blood Cell % 0 /100 WBC (0); Platelet Count 354 Thou/mm3 (140-440); RDW Standard Deviation 40.3 fL (35.1-43.9); Red Blood Count 4.71 Miln/mm3 (4.50-5.90); White Blood Count 14.9 Thou/mm3 (3.8-10.6)
[2025-05-19 05:42] LABS: Alanine Aminotransferase 235 U/L (10-49); Albumin, Serum 4.5 gm/dL (3.5-5.0); Alkaline Phosphatase 134 U/L (46-116); Aspartate Amino Transferase 69 U/L (0-34); Bilirubin,Direct 0.4 mg/dL (0.0-0.3); Total Protein 7.4 gm/dL (5.7-8.2)
[2025-05-19] MEDS: amLODIPine BESYLATE 5 MG TABLET 10 MG PO (08:42)
--- NOTE | 2025-05-19 12:38 | PC.SS ---
SS met with patient regarding his d/c plan. Pt is alert/oriented. Pt was admitted for Possible Abscess Postcholstectomy. Pt confirmed demographic and contact information is correct on facesheet. Pt resides with and kids. Pt ambulates independently without assistance or DME. Pt is ok with all ADLs. Patient?s pharmacy of choice is [facility] on [address] [place]. Pt named his , Karina Beasley medical decision maker if she is unable. Patient?s choice is to return home upon d/c. Pt does not have an advance directive, SS offered, and pt declined. Pt states not diabetic and is not on dialysis. D/C plan: Return home Next of Kin: Karina Beasley, , phone# [phone] PCP: Eda Murphy from [facility] in [place] Address: Correct on facesheet
--- NOTE | 2025-05-19 13:30 | ESPR_ITS ---
<Statement entered by Jeovany Preston MD - 05/28/25 07:48> I reviewed above note and agree with findings and plans. I have also personally examined the patient with medicine team and went over assessment and plan with medical team including internet marketer and resident physician. Documentation for date of: 05/19/25 Subjective Subjective Interval history: No acute overnight events reported. Patient seen and examined at bedside this morning. Patient is sitting on chair saturating on room air, states he has got mild diffuse tenderness. Patient is scheduled to undergo HIDA scan today. Blood pressure this morning was elevated therefore patient's amlodipine is increased to 10 mg daily and added lisinopril 5. Will continue to monitor blood pressure and will make changes if needed. Exam Vital Signs Temp Pulse Resp BP Pulse Ox O2 Del Method O2 Flow Rate 97.0 F 93 18 159/85 H 96 Room Air 2 05/19/25 12:00 05/19/25 12:00 05/19/25 12:00 05/19/25 12:00 05/19/25 12:00 05/19/25 08:00 05/19/25 04:29 Narrative Exam GENERAL: A&Ox3 . Awake, Not in acute distress NEURO: no focal neurological deficits HEENT: Atraumatic, Normocephalic. mucous membranes moist. Eyes open, symmetrical, & clear HEART: Normal Heart Sounds LUNGS: Clear to auscultation with no wheezing or crackles. ABDOMEN: soft, non-distended, mild diffuse tenderness, bowel sounds heard, no guarding or rebound tenderness SKIN: No Rash or ecchymoses EXTREMITIES: No edema, tenderness, able to move all 4 extremities, pedal pulses palpated Objective Labs 05/19/25 04:25 05/18/25 13:50 Labs: Laboratory Results - last 24 hr 05/18/25 05/18/25 05/18/25 13:35 13:50 16:48 WBC 13.7 H RBC 4.92 Hgb 15.0 Hct 41.7 MCV 85 MCH 30.5 MCHC 36.0 RDW Std Deviation 38.7 Plt Count 349 D Neut % (Auto) 80 Lymph % (Auto) 8 L [place] % (Auto) 10 Eos % (Auto) 0 Baso % (Auto) 0 Neut # (Auto) 11.0 H Lymph # (Auto) 1.2 [place] # (Auto) 1.3 H Eos # (Auto) 0.0 Baso # (Auto) 0.0 Immature Gran # (Auto) 0.14 H Absolute Nucleated RBC 0.00 Immature Gran % 1 H Nucleated RBC % 0 Sodium 137 Potassium 4.2 Chloride 98 Carbon Dioxide 29.9 Anion Gap 9 BUN 11 Creatinine 1.2 Estim Creat Clear Calc 99.6 eGFR > 60 BUN/Creatinine Ratio 9 L Glucose 103 Calculated Osmolality 273 L Lactic Acid 1.8 Calcium 9.6 Corrected Calcium 9.6 Total Bilirubin 1.1 Direct Bilirubin AST 105 H ALT 321 H Alkaline Phosphatase 135 H Total Protein 7.8 Albumin 4.7 Globulin 3.1 Albumin/Globulin Ratio 1.5 Lipase 37 Procalcitonin 0.79 H Ur Collection Type Clean Catch Urine Color Yellow Urine Clarity Turbid A Urine pH 6.0 Ur Specific [place] 1.030 Urine Protein 1+ A Urine Glucose (UA) Negative Urine Ketones Negative Urine Blood Trace Urine Nitrite Negative Urine Bilirubin Negative Urine Urobilinogen (Auto) 3.0 Ur Leukocyte Esterase Negative Urine RBC 5 H Urine WBC 1 Ur Squamous Epith Cells 1 Urine Bacteria None SARS-CoV-2 Ag (Rapid) Negative 05/19/25 04:25 WBC 14.9 H RBC 4.71 Hgb 14.5 Hct 41.3 MCV 88 MCH 30.8 MCHC 35.1 RDW Std Deviation 40.3 Plt Count 354 Neut % (Auto) 81 H Lymph % (Auto) 8 L [place] % (Auto) 9 Eos % (Auto) 0 Baso % (Auto) 0 Neut # (Auto) 12.0 H Lymph # (Auto) 1.2 [place] # (Auto) 1.4 H Eos # (Auto) 0.0 Baso # (Auto) 0.1 Immature Gran # (Auto) 0.15 H Absolute Nucleated RBC 0.00 Immature Gran % 1 H Nucleated RBC % 0 Sodium Potassium Chloride Carbon Dioxide Anion Gap BUN Creatinine Estim Creat Clear Calc eGFR BUN/Creatinine Ratio Glucose Calculated Osmolality Lactic Acid Calcium Corrected Calcium Total Bilirubin 1.0 Direct Bilirubin 0.4 H AST 69 H ALT 235 H Alkaline Phosphatase 134 H Total Protein 7.4 Albumin 4.5 Globulin Albumin/Globulin Ratio Lipase Procalcitonin Ur Collection Type Urine Color Urine Clarity Urine pH Ur Specific [place] Urine Protein Urine Glucose (UA) Urine Ketones Urine Blood Urine Nitrite Urine Bilirubin Urine Urobilinogen (Auto) Ur Leukocyte Esterase Urine RBC Urine WBC Ur Squamous Epith Cells Urine Bacteria SARS-CoV-2 Ag (Rapid) Quality Measures Quality Measures none Assessment & Plan Assessment Current Active Medications: Generic Name Dose Route Start Last Admin Trade Name Freq PRN Reason Stop Dose Admin Acetaminophen 650 mg 05/19/25 09:23 Acetaminophen 325 Mg Tablet PO 06/17/25 16:12 Q6HR PRN Fever>101 Amlodipine Besylate 10 mg 05/19/25 09:00 05/19/25 08:42 Amlodipine Besylate 5 Mg Tablet PO 06/18/25 08:59 10 mg QDAY CATA Administration Sodium Chloride 1,000 mls @ 100 mls/hr 05/18/25 16:15 05/19/25 04:58 Ns IV 06/17/25 16:14 100 mls/hr .Q10H CATA Administration Cefazolin Sodium 2 gm in 100 mls @ 200 mls/hr 05/18/25 16:15 05/19/25 05:00 Ancef 2gm Ivpb IV 05/25/25 16:14 200 mls/hr Q8HR CATA Administration Metronidazole 500 mg in 100 mls @ 200 mls/hr 05/18/25 16:15 05/19/25 05:00 Flagyl 500 Mg Iv IV 05/25/25 16:14 200 mls/hr Q8HR CATA Administration Lisinopril 5 mg 05/19/25 13:30 Lisinopril 2.5 Mg Tablet PO 06/18/25 13:29 QDAY CATA Morphine Sulfate 4 mg 05/18/25 16:13 Morphine Sulf Inj 10 Mg/Ml Vial IVP 05/23/25 18:59 Q4HRRT PRN PAIN SCALE 4-6 (Moderate Plan Mr. Mcgill is a 49 year old male with medical history of recent cholecystectomy who [facility] with chief complaints of abdominal pain and fever. Patient was found to have gallbladder fossa abscess and admitted via general surgery. Hospitalist consulted for elevated blood pressure. #Elevated Blood Pressure - Per patient no prior history of hypertension - Ddx: Pain vs primary hypertension vs medication side effect Plan: -Continue to monitor vital signs q8 hours. Most likely BP elevated 2/2 to pain vs primary hypertension. -Continue pain management and monitor for improvement. -Patient will need to follow-up with PCP to receive formal diagnosis outpatient. -Start Amlodipine 10mg PO qd and lisinopril 5mg daily -We will continue to adjust antihypertensive regimen as needed. #Abdominal Pain #Gallbaldder Fossa Abscess #Recent Cholecystectomy - S/P cholecystectomy 05/14/2025 - CT ABD/PLV: Abscess in the gallbladder fossa 9.7 x 6.0 x 5.0 cm, amenable to CT-guided percutaneous catheter drainage Plan: -Agree with current antibiotic regimen. -Continue IV metronidazole & Ancef. -Follow-up blood culture results when available. -Continue to monitor leukocytosis with daily complete blood count. -Pain management as needed. Thank you for allowing us to participate in this patients care. We will continue to follow the patient with you. Assessment and plan discussed with my attending physician Dr. Mohan Coello (PGY-1)- Internal medicine resident
[2025-05-19] MEDS: Lisinopril 2.5 MG TABLET 5 MG PO (13:54)
--- NOTE | 2025-05-19 14:28 | PD.SURPROG ---
Documentation for date of: 05/19/25 Subjective Subjective Narrative: Patient is stable but his blood pressure is slightly high. He still has some abdominal pain but no fever or chills Exam Vital Signs Temp Pulse Resp BP Pulse Ox O2 Del Method O2 Flow Rate 97.0 F 93 18 159/85 H 96 Room Air 2 05/19/25 12:00 05/19/25 13:54 05/19/25 12:00 05/19/25 13:54 05/19/25 12:00 05/19/25 08:00 05/19/25 04:29 His vital signs are normal other than tachycardia with a pulse rate of 93 Routine Abdominal Exam Comments: Tenderness in the right upper quadrant Results Results: Laboratory Laboratory Narrative: Laboratory results show WBC of 14,500. Results: Imaging Imaging narrative: Patient had HIDA scan which showed no evidence of leak from the biliary tree. Assessment & Plan Assessment Additional comments: Impression: Possible infected bile collection or abscess over the gallbladder fossa Plan Plan: I discussed the case with Dr. Gonzalez about further management. He feels that abscess needs to be ruled out. Because of the acute cholecystitis it is possible that patient may have a collection and it will be drained percutaneously by the radiologist. We will arrange for it tomorrow
[2025-05-20] VITALS (14 sets, daily range): BP systolic 126–156; BP diastolic 72–99; PULSE 77–97; RESP 13–25; TEMP 36.4–37.2; O2SAT 94–98
[2025-05-20] MEDS: ceFAZolin/D5W 2 GM IV 2 GM/100 ML BAG IV ×3 (05:14→21:01)
[2025-05-20 06:02] LABS: Basophils # (Auto) 0.1 Thou/mm3 (0.0-0.2); Basophils % (Auto) 0 % (0-2.5); Eosinophils # (Auto) 0.1 Thou/mm3 (0.0-0.5); Eosinophils % (Auto) 1 % (0-10); Hematocrit 38.4 % (41.0-53.0); Hemoglobin 13.4 g/dL (13.5-16.0); Immature Granulocytes % (Auto) 2 % (0-0); Immature Granulocytes Auto 0.31 Thou/mm3 (0.00-0.00); Lymphocytes # (Auto) 1.5 Thou/mm3 (1.0-4.8); Lymphocytes % (Auto) 11 % (10-50); Mean Corpuscular HGB Conc 34.9 g/dl (31.0-37.0); Mean Corpuscular Hemoglobin 30.5 pg (25.0-35.0); Mean Corpuscular Volume 88 fL (80-100); Monocytes # (Auto) 1.4 Thou/mm3 (0.0-0.8); Monocytes % (Auto) 11 % (0-12); Neutrophils # (Auto) 9.5 Thou/mm3 (1.8-7.7); Neutrophils % (Auto) 75 % (37-80); Nucleated Red Blood Cell % 0 /100 WBC (0); Platelet Count 382 Thou/mm3 (140-440); RDW Standard Deviation 40.4 fL (35.1-43.9); Red Blood Count 4.39 Miln/mm3 (4.50-5.90); White Blood Count 12.8 Thou/mm3 (3.8-10.6)
[2025-05-20] MEDS: metroNIDAZOLE/NS 500 MG IVPB 500 MG/100 ML BAG 200 MG IV ×3 (06:22→21:01)
[2025-05-20] MEDS: Lisinopril 2.5 MG TABLET 5 MG PO (09:00)
[2025-05-20] MEDS: amLODIPine BESYLATE 5 MG TABLET 10 MG PO (09:00)
[2025-05-20 09:36] LABS: Partial Thromboplastin Time 27.4 Seconds (22.0-36.0); Prothrombin Time 10.9 Seconds (9.0-12.2)
--- NOTE | 2025-05-20 12:55 | XR_ITS ---
Examination: CT-guided percutaneous placement abscess drainage catheter gallbladder fossa CT abdomen without intravenous contrast Date and time of procedure: May 20, 2025 1345 hours INDICATIONS: Abdominal pain post cholecystectomy last week, abscess collection in the gallbladder fossa on CT abdomen pelvis May 18, 2025 Informed consent provided. A timeout was completed verifying correct patient, procedure, site and positioning. Technique: Axial 3 mm sections were obtained for localization of the gallbladder fossa abscess Appropriate area is marked. The patient's site was prepped and draped in sterile fashion Maximal sterile barrier technique utilized, including hand hygiene Local anesthesia was obtained with 1% lidocaine. Low dose protocols were performed. One or more of the following dose reduction techniques were used; automated exposure control, adjustment of the mA and/or KV according to patient size, use of iterative reconstruction technique. Utilizing CT fluoroscopic guidance 5 Sinhala catheter placed in the abscess collection followed by 0.35 wire guide, dilators and 6 Sinhala abscess drainage catheter 100 cc grossly purulent material withdrawn and sent to laboratory for culture and sensitivity Patient appears in stable condition during this procedure. At completion of the procedure, the patient is in satisfactory condition. Estimated blood loss 2 cc Complete pathology report to follow. Impression: Successful CT-guided placement abscess drainage catheter gallbladder fossa, drainage 100 cc purulent material from the abscess
--- NOTE | 2025-05-20 13:34 | PC.SS ---
Follow up note: blood pressure is improving. Dr. Low is primary on case and hospitalist team is consulting. Pt will return home upon dc.
[2025-05-20] MEDS: fentaNYL CIT INJ 50 mCg/ML AMP 2ML 100 MCG IVP (14:10)
[2025-05-20] MEDS: LIDOCAINE INJ PF 1% 30 ML VIAL 5 ML INFL (14:18)
[2025-05-20] MEDS: SODIUM CHLORIDE 0.9% 1000 ML 1,000 ML 100 ML IV (14:53)
--- NOTE | 2025-05-20 15:33 | PC.NURSE ---
1437 patient is awake, alert, breathing unlabored, s/p gallbladder drain [facility], no active bleeding noted, report given to Yasmin ANDERSON, patient transferred to room 358.
--- NOTE | 2025-05-20 15:54 | ESPR_ITS ---
Documentation for date of: 05/20/25 Subjective Subjective Interval history: No acute overnight events reported. Patient seen and examined at bedside this morning. Patient states he is doing well, denies any fever or chills or headaches. Patient is scheduled to undergo abscess drainage. Blood pressure is slightly elevated 151/99 therefore will increase lisinopril to 10 mg 1 continue to monitor blood pressure. Labs are significant for WBC of 12.8, hemoglobin 13.4, hematocrit 38.4. Patient has no other complaints Exam Vital Signs Temp Pulse Resp BP Pulse Ox O2 Del Method O2 Flow Rate 98.9 F 86 19 132/82 H 96 Room Air 2 05/20/25 12:00 05/20/25 14:27 05/20/25 14:27 05/20/25 14:27 05/20/25 14:27 05/20/25 14:27 05/19/25 04:29 Narrative Exam GENERAL: A&Ox3 . Awake, Not in acute distress NEURO: no focal neurological deficits HEENT: Atraumatic, Normocephalic. mucous membranes moist. Eyes open, symmetrical, & clear HEART: Normal Heart Sounds LUNGS: Clear to auscultation with no wheezing or crackles. ABDOMEN: soft, non-distended, mild diffuse tenderness, bowel sounds heard, no guarding or rebound tenderness SKIN: No Rash or ecchymoses EXTREMITIES: No edema, tenderness, able to move all 4 extremities, pedal pulses palpated Objective Labs 05/20/25 05:13 05/18/25 13:50 Labs: Laboratory Results - last 24 hr 05/20/25 05:13 WBC 12.8 H RBC 4.39 L Hgb 13.4 L Hct 38.4 L MCV 88 MCH 30.5 MCHC 34.9 RDW Std Deviation 40.4 Plt Count 382 Neut % (Auto) 75 Lymph % (Auto) 11 Snyder % (Auto) 11 Eos % (Auto) 1 Baso % (Auto) 0 Neut # (Auto) 9.5 H Lymph # (Auto) 1.5 Snyder # (Auto) 1.4 H Eos # (Auto) 0.1 Baso # (Auto) 0.1 Immature Gran # (Auto) 0.31 H Absolute Nucleated RBC 0.00 Immature Gran % 2 H Nucleated RBC % 0 PT 10.9 INR 1.0 APTT 27.4 Quality Measures Quality Measures none Assessment & Plan Assessment Current Active Medications: Generic Name Dose Route Start Last Admin Trade Name Nona PRN Reason Stop Dose Admin Acetaminophen 650 mg 05/19/25 09:23 Acetaminophen 325 Mg Tablet PO 06/17/25 16:12 Q6HR PRN Fever>101 Amlodipine Besylate 10 mg 05/19/25 09:00 05/20/25 09:00 Amlodipine Besylate 5 Mg Tablet PO 06/18/25 08:59 10 mg QDAY CATA Administration Sodium Chloride 1,000 mls @ 100 mls/hr 05/18/25 16:15 05/20/25 14:53 Ns IV 06/17/25 16:14 100 mls/hr .Q10H CATA Administration Cefazolin Sodium 2 gm in 100 mls @ 200 mls/hr 05/18/25 16:15 05/20/25 14:54 Ancef 2gm Ivpb IV 05/25/25 16:14 200 mls/hr Q8HR CATA Administration Metronidazole 500 mg in 100 mls @ 200 mls/hr 05/18/25 16:15 05/20/25 06:22 Flagyl 500 Mg Iv IV 05/25/25 16:14 200 mls/hr Q8HR CATA Administration Lisinopril 10 mg 05/21/25 09:00 Lisinopril 2.5 Mg Tablet PO 06/20/25 08:59 QDAY CATA Morphine Sulfate 4 mg 05/18/25 16:13 Morphine Sulf Inj 10 Mg/Ml Vial IVP 05/23/25 18:59 Q4HRRT PRN PAIN SCALE 4-6 (Moderate Plan Mr. Mcgill is a 49 year old male with medical history of recent cholecystectomy who presented to [facility] on 05/18[facility]25 with chief complaints of abdominal pain and fever. Patient was found to have gallbladder fossa abscess and admitted via general surgery. Hospitalist consulted for elevated blood pressure. #Elevated Blood Pressure - Per patient no prior history of hypertension - Ddx: Pain vs primary hypertension vs medication side effect Plan: -Continue to monitor vital signs q8 hours. Most likely BP elevated 2/2 to pain vs primary hypertension. -Continue pain management and monitor for improvement. -Patient will need to follow-up with PCP to receive formal diagnosis outpatient. -Start Amlodipine 10mg PO qd and lisinopril 10mg daily -We will continue to adjust antihypertensive regimen as needed. #Abdominal Pain #Gallbaldder Fossa Abscess #Recent Cholecystectomy - S/P cholecystectomy 05/14/2025 - CT ABD/PLV: Abscess in the gallbladder fossa 9.7 x 6.0 x 5.0 cm, amenable to CT-guided percutaneous catheter drainage Plan: -Agree with current antibiotic regimen. -Continue IV metronidazole & Ancef. -Follow-up blood culture results when available. -Continue to monitor leukocytosis with daily complete blood count. -Pain management as needed. Thank you for allowing us to participate in this patients care. We will continue to follow the patient with you. Assessment and plan discussed with my attending physician Dr. Alonzo Coello (PGY-1)- Internal medicine resident Attending Provider Attestation/Addendum I have discussed and was present for the essential components of the history, physical examination, diagnosis, and treatment plan with the resident. I agree with the patient's care as documented by the resident and amended herein by me. Eron Rosado, DO. Patient seen and evaluated this AM. BP ranging from 140 to 160 mmHg, will continue amlodipine and uptitrate lisinopril today and continue to monitor closely. Although this document has been carefully reviewed, there may still be some phonetic and other typographical errors. These errors are purely grammatical due to imperfections in the software program and should not be construed in any way to compromise the substance of the patient's medical care during this visit.
[2025-05-20] MEDS: ACETAMINOPHEN 325 MG TABLET 650 MG PO (16:15)
--- NOTE | 2025-05-20 19:37 | PD.SURPROG ---
Documentation for date of: 05/20/25 Subjective Subjective Narrative: The patient is feeling slightly better today. He is tolerating regular diet Exam Vital Signs Temp Pulse Resp BP Pulse Ox O2 Del Method O2 Flow Rate 98.2 F 77 17 139/94 H 95 Room Air 2 05/20/25 16:00 05/20/25 16:00 05/20/25 16:00 05/20/25 16:00 05/20/25 16:00 05/20/25 16:00 05/19/25 04:29 Vital signs are normal including the blood pressure Routine Abdominal Exam Comments: Mild tenderness in the right upper quadrant Results Results: Laboratory Laboratory Narrative: WBC slightly improved to 12.8 thousand Results: Imaging Imaging narrative: Patient's HIDA scan yesterday showed no biliary leakage. Patient is planning to have abscess drained percutaneously by IR today
[2025-05-20] MEDS: MORPHINE SULF INJ 10 MG/ML VIAL 4 MG IVP (21:37)
[2025-05-21] VITALS (10 sets, daily range): BP systolic 128–143; BP diastolic 87–97; PULSE 82–93; RESP 16–18; TEMP 36.1–36.5; O2SAT 93–97; BMI 35.6
[2025-05-21] MEDS: MORPHINE SULF INJ 10 MG/ML VIAL 4 MG IVP ×2 (03:38→22:45)
[2025-05-21] MEDS: SODIUM CHLORIDE 0.9% 1000 ML 1,000 ML 100 ML IV (03:42)
[2025-05-21] MEDS: metroNIDAZOLE/NS 500 MG IVPB 500 MG/100 ML BAG 200 MG IV ×3 (05:16→21:33)
[2025-05-21] MEDS: ceFAZolin/D5W 2 GM IV 2 GM/100 ML BAG IV ×3 (05:16→21:33)
[2025-05-21] MEDS: Lisinopril 2.5 MG TABLET 10 MG PO (09:15)
[2025-05-21] MEDS: amLODIPine BESYLATE 5 MG TABLET 10 MG PO (09:19)
--- NOTE | 2025-05-21 16:48 | PD.SURPROG ---
Documentation for date of: 05/21/25 Subjective Subjective Narrative: The patient is feeling better after drainage of the abscess that the gallbladder fossa Exam Vital Signs Temp Pulse Resp BP Pulse Ox O2 Del Method O2 Flow Rate 97.3 F 93 18 141/96 H 97 Room Air 2 05/21/25 12:00 05/21/25 13:06 05/21/25 13:06 05/21/25 12:00 05/21/25 13:06 05/21/25 12:00 05/19/25 04:29 Patient's vital signs are normal Routine Abdominal Exam Comments: Examination of the drain site revealed very minimal drainage Assessment & Plan Assessment Additional comments: Pression: Patient had a successful drainage of the abscess in the gallbladder region Plan Plan: We shall check CBC tomorrow and if it is normal we should be able to remove the drain and discharge him.
--- NOTE | 2025-05-21 18:31 | ESPR_ITS ---
Documentation for date of: 05/21/25 Subjective Subjective Interval history: No acute overnight events reported. Patient seen and examined at bedside this morning. Patient is status post abscess drainage and accordion drain is placed. Patient's blood pressure is well-controlled with amlodipine and lisinopril. Patient is recommended to continue amlodipine 10 mg and lisinopril 10 mg daily and follow-up with primary care physician as well as to check blood pressure at home daily and keep a journal to share with his PCP. At this time hospitalist team will sign off Exam Vital Signs Temp Pulse Resp BP Pulse Ox O2 Del Method O2 Flow Rate 97.7 F 88 16 128/87 H 93 L Room Air 2 05/21/25 16:00 05/21/25 16:00 05/21/25 16:05/21/25 16:05/21/25 16:05/21/25 16:05/19/25 04:29 Narrative Exam GENERAL: A&Ox3 . Awake, Not in acute distress NEURO: no focal neurological deficits HEENT: Atraumatic, Normocephalic. mucous membranes moist. Eyes open, symmetrical, & clear HEART: Normal Heart Sounds LUNGS: Clear to auscultation with no wheezing or crackles. ABDOMEN: soft, non-distended, mild diffuse tenderness, bowel sounds heard, no guarding or rebound tenderness SKIN: No Rash or ecchymoses EXTREMITIES: No edema, tenderness, able to move all 4 extremities, pedal pulses palpated Objective Labs 05/22/25 04:52 05/18/25 13:50 Quality Measures Quality Measures none Assessment & Plan Assessment Current Active Medications: Generic Name Dose Route Start Last Admin Trade Name Freq PRN Reason Stop Dose Admin Acetaminophen 650 mg 05/19/25 09:23 05/20/25 16:15 Acetaminophen 325 Mg Tablet PO 06/17/25 16:12 650 mg Q6HR PRN Administration Fever>101 Amlodipine Besylate 10 mg 05/19/25 09:00 05/21/25 09:19 Amlodipine Besylate 5 Mg Tablet PO 06/18/25 08:59 10 mg QDAY CATA Administration Sodium Chloride 1,000 mls @ 100 mls/hr 05/18/25 16:15 05/21/25 03:42 Ns IV 06/17/25 16:14 100 mls/hr .Q10H CATA Administration Cefazolin Sodium 2 gm in 100 mls @ 200 mls/hr 05/18/25 16:15 05/21/25 15:20 Ancef 2gm Ivpb IV 05/25/25 16:14 Infused Q8HR CATA Infusion Metronidazole 500 mg in 100 mls @ 200 mls/hr 05/18/25 16:15 05/21/25 15:25 Flagyl 500 Mg Iv IV 05/25/25 16:14 Infused Q8HR CATA Infusion Lisinopril 10 mg 05/21/25 09:00 05/21/25 09:15 Lisinopril 2.5 Mg Tablet PO 06/20/25 08:59 10 mg QDAY CATA Administration Morphine Sulfate 4 mg 05/18/25 16:13 05/21/25 03:38 Morphine Sulf Inj 10 Mg/Ml Vial IVP 05/23/25 18:59 4 mg Q4HRRT PRN Administration PAIN SCALE 4-6 (Moderate Plan Mr. Mcgill is a 49 year old male with medical history of recent cholecystectomy who presented to [facility] on 05/18/2025 with chief complaints of abdominal pain and fever. Patient was found to have gallbladder fossa abscess and admitted via general surgery. Hospitalist consulted for elevated blood pressure. #Elevated Blood Pressure - Per patient no prior history of hypertension - Ddx: Pain vs primary hypertension vs medication side effect Plan: -Continue to monitor vital signs q8 hours. Most likely BP elevated 2/2 to pain vs primary hypertension. -Continue pain management and monitor for improvement. -Patient will need to follow-up with PCP to receive formal diagnosis outpatient. -Start Amlodipine 10mg PO qd and lisinopril 10mg daily -Pt is recommended to follow up with PCP, and keep journal of daily BP to share with PCP. #Abdominal Pain #Gallbaldder Fossa Abscess #Recent Cholecystectomy - S/P cholecystectomy 05/14/2025 - CT ABD/PLV: Abscess in the gallbladder fossa 9.7 x 6.0 x 5.0 cm, amenable to CT-guided percutaneous catheter drainage Plan: -Agree with current antibiotic regimen. -Continue IV metronidazole & Ancef. -Follow-up blood culture results when available. -Continue to monitor leukocytosis with daily complete blood count. -Pain management as needed. Thank you for allowing us to participate in this patients care. We will continue to follow the patient with you. Assessment and plan discussed with my attending physician Dr. Alonzo Coello (PGY-1)- Internal medicine resident Attending Provider Attestation/Addendum I have discussed and was present for the essential components of the history, physical examination, diagnosis, and treatment plan with the resident. I agree with the patient's care as documented by the resident and amended herein by me. Eron Rosado, DO. Patient seen and evaluated this AM. No acute events overnight, blood pressure much better controlled on amlodipine and lisinopril. Will sign off at this time however more than willing to reassess the patient if blood pressure should become uncontrolled. We appreciate the opportunity to participate in the care and management of this patient. Although this document has been carefully reviewed, there may still be some phonetic and other typographical errors. These errors are purely grammatical due to imperfections in the software program and should not be construed in any way to compromise the substance of the patient's medical care during this visit.
[2025-05-22] VITALS (12 sets, daily range): BP systolic 127–149; BP diastolic 78–102; PULSE 66–87; RESP 16–25; TEMP 36.2–36.9; O2SAT 94–98
[2025-05-22 05:24] LABS: Basophils # (Auto) 0.1 Thou/mm3 (0.0-0.2); Basophils % (Auto) 1 % (0-2.5); Eosinophils # (Auto) 0.1 Thou/mm3 (0.0-0.5); Eosinophils % (Auto) 1 % (0-10); Hematocrit 36.2 % (41.0-53.0); Hemoglobin 12.7 g/dL (13.5-16.0); Immature Granulocytes % (Auto) 6 % (0-0); Immature Granulocytes Auto 0.48 Thou/mm3 (0.00-0.00); Lymphocytes # (Auto) 1.6 Thou/mm3 (1.0-4.8); Lymphocytes % (Auto) 19 % (10-50); Mean Corpuscular HGB Conc 35.1 g/dl (31.0-37.0); Mean Corpuscular Hemoglobin 30.2 pg (25.0-35.0); Mean Corpuscular Volume 86 fL (80-100); Monocytes # (Auto) 0.8 Thou/mm3 (0.0-0.8); Monocytes % (Auto) 9 % (0-12); Neutrophils # (Auto) 5.3 Thou/mm3 (1.8-7.7); Neutrophils % (Auto) 63 % (37-80); Nucleated Red Blood Cell % 0 /100 WBC (0); Platelet Count 417 Thou/mm3 (140-440); RDW Standard Deviation 39.1 fL (35.1-43.9); White Blood Count 8.3 Thou/mm3 (3.8-10.6)
[2025-05-22] MEDS: ceFAZolin/D5W 2 GM IV 2 GM/100 ML BAG IV (05:58)
[2025-05-22] MEDS: metroNIDAZOLE/NS 500 MG IVPB 500 MG/100 ML BAG 200 MG IV (05:58)
[2025-05-22] MEDS: SODIUM CHLORIDE 0.9% 1000 ML 1,000 ML 100 ML IV (06:00)
--- NOTE | 2025-05-22 08:08 | PD.SURPROG ---
Documentation for date of: 05/22/25 Subjective Subjective Narrative: Patient is feeling better after the drainage. He is tolerating diet. Exam Vital Signs Temp Pulse Resp BP Pulse Ox O2 Del Method O2 Flow Rate 97.6 F 78 17 127/93 H 95 Room Air 2 05/22/25 04:00 05/22/25 04:00 05/22/25 04:00 05/22/25 04:00 05/22/25 04:00 05/22/25 04:00 05/19/25 04:29 His vital signs are normal and his heart rate is down to 70s Routine Abdominal Exam Comments: The drainage in the catheter is minimal in the past 24 hours Results Results: Laboratory Laboratory Narrative: Patient's WBC is down to 8.3 Assessment & Plan Assessment Additional comments: Impression: Satisfactory recovery following drainage of the abscess in the liver bed Plan Plan: We shall remove the catheter and discharge.
[2025-05-22] MEDS: amLODIPine BESYLATE 5 MG TABLET 10 MG PO (08:50)
[2025-05-22] MEDS: Lisinopril 2.5 MG TABLET 10 MG PO (08:51)
[2025-05-22 10:02] LABS: Partial Thromboplastin Time 27.3 Seconds (22.0-36.0); Prothrombin Time 10.9 Seconds (9.0-12.2)
--- NOTE | 2025-05-22 13:56 | XR_ITS ---
Examination: IR fluoroscopically guided removal gallbladder fossa abscess drainage catheter Fluoroscopy AP abdomen 3 views Date and time: May 22, 2025 1343 hours INDICATIONS: History CT-guided percutaneous placement abscess drainage catheter in the gallbladder fossa May 20, 2025 no longer drainage from the abscess drainage catheter TECHNIQUE AND FINDINGS: Informed consent provided. Timeout performed. Skin prepped over the entrance site of the drainage catheter in Steri-Drape applied hand hygiene 1% lidocaine administered for local anesthesia 0.3 forward guide introduced through the catheter to straighten the pigtail end was successful removal Estimated blood loss 2 cc Patient instable condition at completion procedure IMPRESSION: Successful IR fluoroscopically guided removal gallbladder fossa abscess drainage catheter Fluoroscopy 0.1 minute radiation dose 13.99 milligray
[2025-05-22] MEDS: LIDOCAINE INJ PF 1% 5 ML VIAL 1 ML INFL (14:17)
[2025-05-22] MEDS: fentaNYL CIT INJ 50 mCg/ML AMP 2ML IVP (14:30)
--- NOTE | 2025-05-22 16:00 | CHAP ---
Patient was visited by the Spiritual Care Volunteer who prayed for them. (Volunteer was in the hospital from 14:00-17:00).
--- NOTE | 2025-05-22 17:16 | PC.NURSE ---
Rounded with MD Clifford per pt is cleared to Discharge. Per MD Hooper they are signed off no further indications given.
--- NOTE | 2025-05-22 17:36 | PC.NURSE ---
Pt ready for discharge as soon as ride arrives.
--- NOTE | 2025-05-23 12:49 | ESDS_ITS ---
RE: KENNY GRANADOS : 1975 DATE OF ADMISSION: 05/18/2025 DATE OF DISCHARGE: 05/22/2025 18:12 DATE OF ADMISSION: 05/18/2025 DATE OF DISCHARGE: 05/22/2025 FINAL DIAGNOSES: Abscess of the gallbladder fossa following cholecystectomy and hypertension. PROCEDURES DONE: IV antibiotic therapy consisting of Ancef and Flagyl and drainage of the abscess by the ER on 05/20/2025 and HIDA scan. REASON FOR ADMISSION: This patient is a 49-year-old gentleman, who was admitted to the hospital following discharge for acute cholecystitis just 3 days ago. The patient was operated for acute calculus cholecystitis on 05/14/2025. Postoperatively, he was discharged the next day. He returned to my office on Sunday with low-grade fever and abdominal pain. He was therefore sent to the emergency room and a CT scan showed collection of the fluid in the gallbladder fossa. The patient also was found to have hypertension. He was therefore readmitted to the hospital and started on antibiotics consisting of Ancef and Flagyl. The patient's culture that was done at the time of surgery on 05/14/2025 came back E. coli. HOSPITAL COURSE: The patient was treated with antibiotics and HIDA scan was performed on 05/19/2025, which showed no biliary leakage. On 05/20/2025, Dr. Zabala performed drainage of the abscess percutaneously using a CT scan. The patient subsequently improved and his WBC returned to normal [place] 8000 [place] [address] at the time of admission. He was tolerating diet, but because of the hypertension that was high, consultation was obtained by the hospitalist, who started him on lisinopril and amlodipine. The drain was removed on 05/22/2025 and the patient is being discharged. At the time of discharge, no antibiotics were given because he has completed the course here and the abscess has been drained. The patient will be given both hypertensive medications and will be followed up in my office in about 10 days on 06/01/2025. DT: 17:17:08 TT: 22:18:00 Ref: [id number] - TID: [id number]
== END 2025-05-22 18:12 | disposition home or self-care (01) | DRG 721 ==
LOC: SERX 16:06 → SERHOLD 16:39 → S3NX 18:24
PROVIDERS: Nurse Practitioner Primary Care; Physician Assistant Medical; Radiology Diagnostic Radiology; Admitting Provider Surgery; Emergency Provider Family Medicine; PCP Physician Assistant; Visit Provider Student in an Organized Health Care Education/Training Program
DX: T81.40XA Infection following a procedure, unspecified, initial encounter (principal); I10 Essential (primary) hypertension; J18.9 Pneumonia, unspecified organism; K80.00 Calculus of gallbladder with acute cholecystitis without obstruction; Z90.49 Acquired absence of other specified parts of digestive tract; Z79.899 Other long term (current) drug therapy
CPT/HCPCS: 36415; 71046; 74177; 75989; 78227; 80053; 80076; 81001; 83605; 83690; 84145; 85025; 85610; 85730; 87040; 87070; 87075; 87077; 87081; 87086; 87186; 87205; 87811; 93225; 96365; 96367; 99285; A4649; A9537; C1769; J0689; J2270; J3010; J3490; J7030; Q9967; A9270; C1725; J1836

== ENCOUNTER 2025-06-03 19:59 | Emergency (ER) | payer MEDICAID, SELFPAY ==
[2025-06-03 20:02] VITALS: BMI 33.9
[2025-06-03 20:52] VITALS: BP 118/78; PULSE 105; RESP 18; TEMP 37.4; O2SAT 96
--- NOTE | 2025-06-03 21:11 | PD.EDRME ---
Rapid Medical Screening Exam [facility] Arrival date/time: 06/03/25 19:59 49M with history of HTN and recent cholecystectomy complicated by abscess formation presents to ED with back, RUQ/R lower chest pain, and fevers/chills since most recent discharge 2 weeks ago. Patient denies URI symptoms. Patient saw Dr. Clifford in office today, who recommended labs. Lab was closed so patient came to ED. Chief Complaint: General Adult/Misc Complain Vital signs: Vital Signs Temperature 99.3 F 06/03/25 20:52 Pulse Rate 105 H 06/03/25 20:52 Respiratory Rate 18 06/03/25 20:52 Blood Pressure 118/78 06/03/25 20:52 Pulse Oximetry (%) 96 06/03/25 20:52 Oxygen Delivery Method Room Air 06/03/25 20:52
[2025-06-03 21:28] LABS: Collection Type, Urine Clean Catch; RBC,Urine 0 /hpf (0-3); Squamous Epithelial Cell,Urine 0 /hpf (0-5); WBC,Urine 0 /hpf (0-5)
[2025-06-03 21:41] LABS: Lactate (Lactic Acid) 1.2 mMol/L (0.4-2.0)
[2025-06-03 21:42] LABS: Basophils # (Auto) 0.0 Thou/mm3 (0.0-0.2); Basophils % (Auto) 0 % (0-2.5); Eosinophils # (Auto) 0.0 Thou/mm3 (0.0-0.5); Eosinophils % (Auto) 0 % (0-10); Hematocrit 38.6 % (41.0-53.0); Hemoglobin 13.2 g/dL (13.5-16.0); Immature Granulocytes Auto 0.07 Thou/mm3 (0.00-0.00); Lymphocytes # (Auto) 1.5 Thou/mm3 (1.0-4.8); Lymphocytes % (Auto) 14 % (10-50); Mean Corpuscular HGB Conc 34.2 g/dl (31.0-37.0); Mean Corpuscular Hemoglobin 30.5 pg (25.0-35.0); Mean Corpuscular Volume 89 fL (80-100); Monocytes # (Auto) 1.5 Thou/mm3 (0.0-0.8); Monocytes % (Auto) 15 % (0-12); Neutrophils # (Auto) 7.1 Thou/mm3 (1.8-7.7); Neutrophils % (Auto) 69 % (37-80); Nucleated Red Blood Cell # 0.00 Thou/mm3 (0.00-0.00); Nucleated Red Blood Cell % 0 /100 WBC (0); Platelet Count 661 Thou/mm3 (140-440); RDW Standard Deviation 39.8 fL (35.1-43.9); Red Blood Count 4.33 Miln/mm3 (4.50-5.90); White Blood Count 10.2 Thou/mm3 (3.8-10.6)
[2025-06-03 22:08] LABS: Alanine Aminotransferase 189 U/L (10-49); Albumin, Serum 5.0 gm/dL (3.5-5.0); Albumin/Globulin Ratio 1.4 (1.2-2.2); Alkaline Phosphatase 197 U/L (46-116); Anion Gap 11 (7-16); Aspartate Amino Transferase 108 U/L (0-34); BUN/Creatinine Ratio 12 Ratio (12-20); Bilirubin,Total 1.1 mg/dL (0.3-1.2); Blood Urea Nitrogen 14 mg/dL (9-23); Calcium 10.3 mg/dL (8.3-10.6); Calcium (Corrected) 10.3 mg/dL (8.5-10.1); Carbon Dioxide 27.9 mMol/L (20.0-31.0); Chloride 94 mMol/L (98-107); Creatinine (Component) 1.2 mg/dL (0.6-1.3); Estimated Creatinine Clearance 97.4 mL/min (>60); Globulin 3.7 gm/dL (2.3-3.5); Glucose 105 mg/dL (74-106); Lipase 47 U/L (12-53); Osmolality,Calculated 266 (275-295); Potassium 4.7 mMol/L (3.4-5.1); Procalcitonin 0.31 ng/ml (0.0-0.49); Sodium 133 mMol/L (136-145); Total Protein 8.7 gm/dL (5.7-8.2); eGFR > 60 See Note
[2025-06-03 22:10] LABS: Bacteria,Urine Rare; Bilirubin,Urine Negative (Negative); Blood,Urine Negative (Negative); Clarity,Urine Clear (Clear/Hazy); Color,Urine Yellow (Lt Yel-Yel); Glucose, Urine Negative (Negative); Ketones,Urine Negative (Negative); Leukocyte Esterase,Urine Negative (Negative); Nitrite,Urine Negative (Negative); PH,Urine 6.0 (5.0-7.0); Protein,Urine 1+ (Neg - Trace); Specific Gravity,Urine 1.027 (1.001-1.035); Urobilinogen,Urine 8.0 mg/dL (0.0-1.0)
[2025-06-03 22:20] LABS: Amphetamine/Methamp Scrn,U Negative (Negative); Barbiturate Screen,Urine Negative (Negative); Benzodiazepines Screen,Urine Negative (Negative); Benzoylecgonine Screen, Ur Negative (Negative); Fentanyl Screen,Urine Negative (Negative); Opiate Screen,Urine Negative (Negative); THC Screen,Urine Negative (Negative)
[2025-06-04 00:29] VITALS: BP 130/90; PULSE 97; RESP 18; O2SAT 97
--- NOTE | 2025-06-04 00:30 | XR_ITS ---
Examination: PA chest single view TECHNIQUE: Upright PA chest single view Date and time: June 04, 2025, 0059 hours Comparison May 18, 2025 INDICATIONS: Lower chest pain fever chills beginning 2 weeks ago. FINDINGS: Bilateral subsegmental atelectasis. Normal heart size. No lobar pneumonia or pulmonary edema IMPRESSION: Bilateral subsegmental atelectasis
--- NOTE | 2025-06-04 00:59 | PD.EDBACK ---
ED Back Injury Pain RME/HPI General Chief Complaint: General Adult/Misc Complain Stated Complaint: BACK PAIN,CHILLS, NOT FEELING GOOD Time Seen by Provider: 06/04/25 00:15 Arrival date/time: 06/03/25 19:59 RME / HPI RME / HPI Narrative: 06/03/25 19:59 49M with history of HTN and recent cholecystectomy complicated by abscess formation presents to ED with back, RUQ/R lower chest pain, and fevers/chills since most recent discharge 2 weeks ago. Patient denies URI symptoms. Patient saw Dr. Clifford in office today, who recommended labs. Lab was closed so patient came to ED. DR. RITTER MAIN ED EVALUATION: 49 y/ male presents s/p cholecystectomy complicated by bilioma s/p CT guided drainage on 04/2025. Notes that since having been home he reports pain rigditing from the intralateral neck of the shoulder and right posterior thoracic pain in the right parathoracic region. Denies definitive fever or chills. Reports mild residual discomfort in the right upper quadrant. Denies light dizziness, or near syncope. No other concerns or complaints expressed at this time. Related Data Home Medications ?Medication ?Instructions ?Recorded ?Confirmed famotidine 20 mg tablet 20 mg PO BID PRN acid reflux 05/14/25 05/18/25 Previous Rx's ?Medication ?Instructions ?Recorded hydrocodone 5 mg-acetaminophen 325 1 tab PO Q6H #20 tabs 05/15/25 mg tablet cyclobenzaprine 5 mg tablet 5 mg PO TID PRN muscle spasm #15 06/04/25 tabs prednisone 20 mg tablet 40 mg (2 x 20 mg) PO QDAY 5 days 06/04/25 #10 tabs Allergies Allergy/AdvReac Type Severity Reaction Status Date / Time No Known Allergies Allergy Verified 06/03/25 20:03 Review of Systems Review of Systems Systems Reviewed: All systems reviewed, normal except as documented Past Medical History Surgical History SURGICAL: Positive Joint Replacement ED Exam Narrative Physical exam: GEN. APPEARANCE: The patient is alert awake oriented X-3 in no distress, lying down comfortably, does not look ill/toxic. Patient has good eye contact. Patient is cooperative. VITALS: All vitals were reviewed and the pulse ox is 97% on room air which is normal according to my interpretation. HEENT: Normocephalic, atraumatic. Pupils are equal and reactive. Oral mucosa is moist. Patent Nares NECK: Supple, mild tenderness to the right posterior power cervical muscle, no thyromegaly, no meningismus, no JVD, no step offs CHEST: Symmetrical, atraumatic, and with equal expansion , Nontender on palpation no deformity and no crepitus. CARDIOVASCULAR: Heart regular rhythm no murmur or gallop rub or extra beats. LUNGS: Clear to auscultation bilaterally with symmetrical chest rise. No laboring tachypnea or wheezing. No intercostal subcostal retraction. No rales and no rhonchi. ABDOMEN: Soft, flat, nontender to palpation, no guarding or rebound tenderness. There are no abnormal masses palpated. Active and normal bowel sounds. EXTREMITIES: Nontender. No edema. No cyanosis. Patient is able to move all 4 extremities well, with full ROM and good CSM. SKIN: Warm and dry, no jaundice or rashes noted. MUSCULOSKELETAL: No lubar or midline bony tenderness. There is no CVA tenderness. BACK: Mid midline tenderness at the thoracolumbar junction with tenderness and spasm to the right paralumbar region. NEURO: Patient is NICHOLSON x 4, Cranial nerves II through XII grossly intact. There is no focal neurologic deficits noted. GCS is 15, PNS and SOC[employer] SERVICES SPECIALIST appear grossly intact. PSYCHIATRIC: Patient is in normal mood and affect, cooperative, no SI or HI or hallucinations. Course Course Course Narrative: CXR is ordered for determining the etiology of shortness of breath. Quality Measures none Orders Category Date Time Status Incentive Spirometry Treatment NOW Care 06/04/25 01:13 Completed XR chest 1V portable Stat Exams 06/04/25 00:30 Taken CBC Stat Lab 06/03/25 21:33 Completed Comprehensive Metabolic Panel Stat Lab 06/03/25 21:33 Completed Drug Screen,Urine Stat Lab 06/03/25 21:18 Completed Lactate (Lactic Acid) Stat Lab 06/03/25 21:33 Completed Lipase Stat Lab 06/03/25 21:33 Completed Procalcitonin Stat Lab 06/03/25 21:33 Completed Urinalysis Stat Lab 06/03/25 21:18 Completed Vital Signs Vital signs: Vital Signs Temperature 99.3 F 06/03/25 20:52 Pulse Rate 105 H 06/03/25 20:52 Respiratory Rate 18 06/03/25 20:52 Blood Pressure 118/78 06/03/25 20:52 Pulse Oximetry (%) 96 06/03/25 20:52 Oxygen Delivery Method Room Air 06/03/25 20:52 Back Pain / Injury MDM Narrative MDM Narrative:: Scribe Attestation: IJillian, am scribing for and in the presence of Dr. Ritter. Provider Notation: Although this document has been carefully reviewed, there may still be some phonetic and other typographical errors.? These errors are purely grammatical due to imperfections in the software program and should not be construed in any way to? compromise the substance of the patient's medical care during this visit. 49 y/ male presents s/p cholecystectomy complicated by bilioma s/p CT guided drainage on 04/2025. Notes that since having been home he reports pain rigditing from the intralateral neck of the shoulder and right posterior thoracic pain in the right parathoracic region. Denies definitive fever or chills. Reports mild residual discomfort in the right upper quadrant. Please see PE findings. Laboratory markings demonstrate CBC thrombocytosis and mildly elevated LFT's. Chest X-ray demonstrates right lower lobe atelectasis fr which patient will be given incentive spirometer. Will treat for combination of thoracic strain and atelectasis. Close F/U with PMD for repeat laboratory parameters in 3-5 days with precautionary instructions issued. Patient will be discharged home. In the abscence of tachypnea and tachycardia, will not pursue diagnosis of PE at this time. Patient data External records reviewed:: [facility] previous records (Reviewed prior ED records from 05/18/25. Patient was seen for Fever postop.) Clinical information provided by:: patient Social determinants that could affect healthcare access:: none Patient has the following chronic illnesses:: None reported How is presenting disease/condition affected by chronic disease/condition?: no chronic disease Evaluation data The following diagnostics were reviewed and interpreted by me:: lab results and radiology exam(s) Lab and/or radiology exams considered but not ordered:: None Interpretation Summary: RADIOLOGY Chest X-Ray: Pending official radiology report. Medications / Prescriptions Medications or Prescriptions considered but not ordered:: None Medication administrations:: See above Consultations Consultation(s) initiated? (list below): No Diagnosis Differential diagnosis back pain/injury: lumbar radiculopathy, sciatica, strain of lumbar region, renal colic, pyelonephritis, thoracic back pain, AAA and discitis Most likely diagnosis given after review of the tests above:: Myofacial srain, Atelectasis Admission Indicated Admission indicated?: not indicated Explain why admission is indicated or not indicated:: Patient does not meet admission criteria. Admission Request Was there a request for admission?: No Disposition Plan Disposition Plan: Discharge Discharge Attestation Discharge Attestation: The patient and all family members were given an opportunity to ask questions and understood the discharge instructions. Discharge instructions specifically effects, indications for sooner follow up or return to the emergency department, and the expected course of current diagnosis. Patient condition: Stable Discharge Plan Plan Patient Disposition: HOME (Self Care) Prescriptions/Referrals Prescriptions/Med Rec: New prednisone 20 mg tablet 40 mg PO QDAY 5 Days Qty: 10 0RF cyclobenzaprine 5 mg tablet 5 mg PO TID PRN (Reason: muscle spasm) Qty: 15 0RF No Action famotidine 20 mg tablet 20 mg PO BID PRN (Reason: acid reflux) Patient Comments: TAKE 1 TABLET BY MOUTH TWICE DAILY hydrocodone-acetaminophen 5-325 mg tablet 1 tab PO Q6H MDD 4 Qty: 20 0RF Referrals: Eda Murphy [Primary Care Provider] - In 1 week Problem List Clinical Impression: Acute myofascial strain, Atelectasis Patient/Caregiver Discharge Instructions Education Materials: Atelectasis, ED Neck Sprain or Strain Print Language: Kyrgyz Stand Alone Forms: [employer] Award Info., Patient Portal Info Letter
[2025-06-04 01:47] VITALS: RESP 18
== END 2025-06-04 01:48 | disposition home or self-care (01) ==
PROVIDERS: Physician Assistant; Emergency Provider Emergency Medicine; PCP Physician Assistant
DX: S29.012A Strain of muscle and tendon of back wall of thorax, initial encounter (principal); J98.11 Atelectasis; X58.XXXA Exposure to other specified factors, initial encounter
CPT/HCPCS: 36415; 71045; 80053; 80307; 81001; 83605; 83690; 84145; 85025; 99284